=== PATIENT | female | born 1990 | race African-American/Black ===

== ENCOUNTER 2017-05-19 18:53 | Inpatient (IN) | payer MEDICAID ==
[~2017-05-19] VITALS: Ht 149.9 cm; Wt 47.0 kg
[~2017-05-19 18:53] MED LIST: BACL10TA PO; BIS10RS PR; DOCU-137 PO; FAMO-12 PO; FOLI1TAB51 PO; GABA-497 PO; HYD1TP TOP; MECL12.554 PO; ONDA4TAB5 PO; SERT-274 PO; SIMELIQ PO; TRAZ50TA2 PO; [UNRECOGNIZED DRUG - CODE] PO
[2017-05-20] VITALS (7 sets, daily range): BP systolic 88–122; BP diastolic 50–84
[2017-05-20 00:23] LABS: Basophils # (auto) 0 uL; Basophils % (auto) 0.3 % (0.0-2.0); DEFINITIVE SEE PRINTOUT; Eosinophils # (auto) 0.1 uL; Eosinophils % (auto) 0.5 % (0.0-7.0); Hematocrit 20.9 % (36.0-46.0); Lymphocytes # (auto) 2.9 uL; Lymphocytes % (auto) 22.8 % (10.0-50.0); Mean Corpuscular Hemoglobin 21.2 pg (28.0-32.0); Mean Corpuscular Hgb Conc. 32.5 g/dL (32.0-36.0); Mean Corpuscular Volume 65.4 fL (80.0-100.0); Mean Platelet Volume 7.1 fL (7.4-10.4); Monocytes % (auto) 7.6 % (0.0-12.0); Neutrophils # (auto) 8.6 uL; Neutrophils % (auto) 68.8 % (37.0-80.0); Red Cell Distribution Width 19.7 % (11.6-16.0); White Blood Cell 12.6 10^3/uL (4.4-10.8)
[2017-05-20 00:30] LABS: Hemoglobin 6.8 g/dL (12.2-16.2)
[2017-05-20] MEDS ORDERED: SODIUM CHLORIDE 0.9% 1,000 ML IV ONE (00:30)
[2017-05-20] MEDS ORDERED: ONDANSETRON HCL 4 MG/2 ML VIAL IV ONE (00:30)
[2017-05-20] MEDS ORDERED: HYDROmorphone HCL 2 MG/ML VL IV ONE (00:30)
[2017-05-20 00:31] LABS: Platelet Count (auto) 813 10^3/uL (140-450)
[2017-05-20 00:41] LABS: BUN/Creatinine Ratio 43.5; Calcium 8.3 mg/dL (8.5-10.1); Potassium 3.4 mmol/L (3.5-5.1)
[2017-05-20 00:43] LABS: Bilirubin, Total 0.2 mg/dL (0.2-1.0); Total Protein 9.6 g/dL (6.4-8.2)
[2017-05-20] MEDS ORDERED: SODIUM CHLORIDE 0.9% 2,000 ML IV ONE (01:00)
[2017-05-20] MEDS ORDERED: cefTRIAXone 1GM/50ML D5W 50 ML IV ONE (02:00)
[2017-05-20] MEDS ORDERED: VANCOMYCIN 1GM/250ML D5W 250 ML IV ONE (02:00)
[2017-05-20] MEDS ORDERED: NITROGLYCERIN 0.4 MG SL TAB SL PRN (02:30)
[2017-05-20] MEDS ORDERED: ACETAMINOPHEN 325 MG TAB PO PRN (02:30)
[2017-05-20] MEDS ORDERED: AMPICILLIN SOD 2GM INJ 2 GM in SODIUM CHL 0.9% 100 ML IV SCH (02:30)
[2017-05-20] MEDS ORDERED: PANTOPRAZOLE SODIUM 40 MG/10 ML VIAL IV ONE (02:30)
[2017-05-20] MEDS ORDERED: MORPHINE SULF INJ 2 MG/ML SYRINGE 1ML IV PRN (02:30)
[2017-05-20] MEDS: MORPHINE SULF INJ 2 MG/ML SYRINGE 1ML IV PRN ×3 (03:42→12:06)
[2017-05-20] MEDS: ONDANSETRON HCL 4 MG/2 ML VIAL IV PRN ×4 (03:42→21:38)
[2017-05-20] MEDS: SODIUM CHLORIDE 0.9% 1,000 ML IV SCH ×2 (06:27→13:33)
[2017-05-20] MEDS: CEFEPIME HYDROCHLORIDE 2 GM in D5W 5% 50 ML IV SCH ×2 (08:00→10:14)
[2017-05-20 08:51] LABS: Hematocrit 30.5 % (36.0-46.0); Hemoglobin 10.2 g/dL (12.2-16.2)
[2017-05-20 09:24] LABS: Urine Bilirubin Negative (Negative); Urine Blood 1+ /uL (Negative); Urine Color Yellow (Yellow); Urine Glucose Normal (Normal); Urine Ketone Negative (Negative); Urine Mucus FEW (None Seen); Urine Nitrite POSITIVE (Negative); Urine RBC 11 /hpf (0 - 4); Urine Squamous Epithelial Cell FEW /hpf (<5); Urine Urobilinogen Normal (Negative)
[2017-05-20] MEDS: DOCUSATE SOD 100 MG CAP PO SCH ×2 (09:33→22:00)
[2017-05-20] MEDS: SERTRALINE HCL 50 MG TAB PO SCH (09:33)
[2017-05-20] MEDS: PANTOPRAZOLE SODIUM 40 MG/10 ML VIAL IV SCH (10:10)
[2017-05-20] MEDS: HYDROmorphone HCL 2 MG/ML VL IV PRN ×3 (13:13→21:38)
[2017-05-20] MEDS ORDERED: CEFEPIME HYDROCHLORIDE 2 GM in D5W 5% 50 ML IV SCH (16:00)
[2017-05-20] MEDS: OXYCODONE W/ ACETAMINOPHEN 5/325MG TABLET PO PRN (19:52)
[2017-05-20] MEDS: CEFTAROLINE 600 MG in SODIUM CHL 0.9% 250 ML IV SCH (21:39)
[2017-05-20] MEDS ORDERED: PROMETHAZINE HCL 25 MG/ML 1ML ONE (22:21)
[2017-05-20] MEDS ORDERED: PROMETHAZINE HCL 25 MG/ML 1ML IV ONE (22:30)
[2017-05-21] MEDS: SODIUM CHLORIDE 0.9% 1,000 ML IV SCH ×3 (00:43→21:49)
[2017-05-21] MEDS: HYDROmorphone HCL 2 MG/ML VL IV PRN ×5 (02:27→19:15)
[2017-05-21] MEDS: ONDANSETRON HCL 4 MG/2 ML VIAL IV PRN ×2 (02:27→10:30)
[2017-05-21] MEDS: OXYCODONE W/ ACETAMINOPHEN 5/325MG TABLET PO PRN ×3 (03:48→14:52)
[2017-05-21 04:13] LABS: Basophils # (auto) 0 uL; Basophils % (auto) 0.5 % (0.0-2.0); CONDITION Y; DEFINITIVE SEE PRINTOUT; Eosinophils # (auto) 0.3 uL; Eosinophils % (auto) 4.1 % (0.0-7.0); Hematocrit 28.6 % (36.0-46.0); Hemoglobin 9.4 g/dL (12.2-16.2); Lymphocytes # (auto) 1.5 uL; Lymphocytes % (auto) 19.2 % (10.0-50.0); Mean Corpuscular Hemoglobin 24.6 pg (28.0-32.0); Mean Corpuscular Hgb Conc. 33.1 g/dL (32.0-36.0); Mean Corpuscular Volume 74.5 fL (80.0-100.0); Monocytes # (auto) 0.5 uL; Monocytes % (auto) 6.7 % (0.0-12.0); Neutrophils # (auto) 5.5 uL; Neutrophils % (auto) 69.5 % (37.0-80.0); Platelet Count (auto) 640 10^3/uL (140-450); SUSPECT SEE PRINTOUT; White Blood Cell 7.9 10^3/uL (4.4-10.8)
[2017-05-21 04:41] LABS: INR 1.05 (0.9-1.15); Prothrombin Time 11.4 sec (9.37-12.3)
[2017-05-21 04:42] LABS: Red Cell Distribution Width 27.7 % (11.6-16.0)
[2017-05-21 04:49] LABS: Albumin 1.5 g/dL (3.4-5.0); BUN/Creatinine Ratio 28.6; Bilirubin, Total 0.2 mg/dL (0.2-1.0); Calcium 7.6 mg/dL (8.5-10.1); Magnesium 1.7 mg/dL (1.6-2.6); Potassium 3.9 mmol/L (3.5-5.1); Total Protein 6.2 g/dL (6.4-8.2)
[2017-05-21 05:50] LABS: Hypersegmented Neutrophils Present; Platelet Estimate Increased
[2017-05-21 05:51] LABS: Anisocytosis Marked; Hypochromia Slight
[2017-05-21] MEDS: SERTRALINE HCL 50 MG TAB PO SCH (10:00)
[2017-05-21] MEDS: DOCUSATE SOD 100 MG CAP PO SCH ×2 (10:57→21:49)
[2017-05-21] MEDS: CEFTAROLINE 600 MG in SODIUM CHL 0.9% 250 ML IV SCH ×2 (10:57→21:49)
[2017-05-21] MEDS: PANTOPRAZOLE SODIUM 40 MG/10 ML VIAL IV SCH (10:57)
[2017-05-21] MEDS ORDERED: OXYCODONE W/ ACETAMINOPHEN 5/325MG TABLET ONE (14:51)
[2017-05-21 19:00] VITALS: BP 109/65
[2017-05-21 19:10] VITALS: BP 118/83
[2017-05-22] VITALS: BP 109/58
[2017-05-22] MEDS: HYDROmorphone HCL 2 MG/ML VL IV PRN ×5 (02:26→21:02)
[2017-05-22] MEDS: ONDANSETRON HCL 4 MG/2 ML VIAL IV PRN ×4 (02:26→21:02)
[2017-05-22 04:00] VITALS: BP 112/76
[2017-05-22 08:00] VITALS: BP 137/68
[2017-05-22] MEDS: OXYCODONE W/ ACETAMINOPHEN 5/325MG TABLET PO PRN (08:44)
[2017-05-22] MEDS: DOCUSATE SOD 100 MG CAP PO SCH ×3 (09:50→21:00)
[2017-05-22] MEDS: SERTRALINE HCL 50 MG TAB PO SCH ×2 (09:50→09:57)
[2017-05-22] MEDS: PANTOPRAZOLE SODIUM 40 MG/10 ML VIAL IV SCH (09:50)
[2017-05-22] MEDS: CEFTAROLINE 600 MG in SODIUM CHL 0.9% 250 ML IV SCH ×2 (09:51→21:00)
[2017-05-22] MEDS: SODIUM CHLORIDE 0.9% 1,000 ML IV SCH ×2 (09:52→20:58)
[2017-05-22 10:20] LABS: Basophils # (auto) 0 uL; Basophils % (auto) 0.3 % (0.0-2.0); CONDITION Y; DEFINITIVE SEE PRINTOUT; Eosinophils # (auto) 0.2 uL; Eosinophils % (auto) 1.9 % (0.0-7.0); Hematocrit 32.8 % (36.0-46.0); Lymphocytes # (auto) 2.3 uL; Mean Corpuscular Hemoglobin 24.5 pg (28.0-32.0); Mean Corpuscular Hgb Conc. 33.7 g/dL (32.0-36.0); Mean Corpuscular Volume 72.8 fL (80.0-100.0); Mean Platelet Volume 7.2 fL (7.4-10.4); Monocytes # (auto) 0.5 uL; Monocytes % (auto) 5.4 % (0.0-12.0); Neutrophils # (auto) 6.8 uL; Neutrophils % (auto) 69.4 % (37.0-80.0); Platelet Count (auto) 744 10^3/uL (140-450); SUSPECT SEE PRINTOUT; White Blood Cell 9.8 10^3/uL (4.4-10.8)
[2017-05-22 10:24] LABS: Red Cell Distribution Width 28.5 % (11.6-16.0)
[2017-05-22 10:33] LABS: INR 1.21 (0.9-1.15)
[2017-05-22 10:35] LABS: Prothrombin Time 13.2 sec (9.37-12.3)
[2017-05-22 10:40] LABS: Albumin 1.5 g/dL (3.4-5.0); BUN/Creatinine Ratio 22.2; Bilirubin, Total 0.2 mg/dL (0.2-1.0); Calcium 7.9 mg/dL (8.5-10.1); Magnesium 1.8 mg/dL (1.6-2.6); Potassium 3.9 mmol/L (3.5-5.1); Total Protein 7.3 g/dL (6.4-8.2)
[2017-05-22 10:44] LABS: Platelet Estimate Markedly Increased
[2017-05-22 10:46] LABS: Anisocytosis Moderate; Hypochromia Slight; Tear Drop Cells FEW
[2017-05-22] MEDS ORDERED: SODIUM CHLORIDE 0.9% 500 ML IV ONE (11:45)
[2017-05-22 12:00] VITALS: BP 142/91
[2017-05-22 15:53] VITALS: BP 110/68
[2017-05-22 20:00] VITALS: BP 103/53
[2017-05-23] VITALS (7 sets, daily range): BP systolic 92–119; BP diastolic 46–78
[2017-05-23] MEDS: traZODone HCL 50 MG TAB PO PRN (00:20)
[2017-05-23] MEDS: HYDROmorphone HCL 2 MG/ML VL IV PRN ×5 (02:51→22:01)
[2017-05-23 05:35] LABS: Basophils # (auto) 0 uL; Basophils % (auto) 0.4 % (0.0-2.0); CONDITION Y; DEFINITIVE SEE PRINTOUT; Eosinophils # (auto) 0.2 uL; Hematocrit 29.7 % (36.0-46.0); Lymphocytes # (auto) 2.3 uL; Lymphocytes % (auto) 31.1 % (10.0-50.0); Mean Corpuscular Hemoglobin 24.7 pg (28.0-32.0); Mean Corpuscular Hgb Conc. 33.7 g/dL (32.0-36.0); Mean Corpuscular Volume 73.3 fL (80.0-100.0); Mean Platelet Volume 7.3 fL (7.4-10.4); Monocytes # (auto) 0.5 uL; Monocytes % (auto) 6.9 % (0.0-12.0); Neutrophils # (auto) 4.4 uL; Neutrophils % (auto) 58.6 % (37.0-80.0); Platelet Count (auto) 702 10^3/uL (140-450); SUSPECT SEE PRINTOUT; White Blood Cell 7.5 10^3/uL (4.4-10.8)
[2017-05-23 05:44] LABS: Red Cell Distribution Width 29.3 % (11.6-16.0)
[2017-05-23 05:46] LABS: INR 1.11 (0.9-1.15); Prothrombin Time 12.1 sec (9.37-12.3)
[2017-05-23] MEDS: SODIUM CHLORIDE 0.9% 1,000 ML IV SCH ×2 (05:54→22:00)
[2017-05-23 05:57] LABS: Albumin 1.3 g/dL (3.4-5.0); Anion Gap 9 (5-15); Blood Urea Nitrogen 5 mg/dL (7-18); Calcium 7.3 mg/dL (8.5-10.1); Carbon Dioxide 22 mmol/L (21-32); Chloride 108 mmol/L (98-107); Glucose 61 mg/dL (74-106); Magnesium 1.8 mg/dL (1.6-2.6); Potassium 3.7 mmol/L (3.5-5.1); Sodium 139 mmol/L (136-145)
[2017-05-23 05:58] LABS: BUN/Creatinine Ratio 33.3; GFR African American 776 mL/min; GFR Non-African American 641 mL/min
[2017-05-23 06:01] LABS: Alkaline Phosphatase 82 U/L (45-117); Aspartate Aminotransferase 8 U/L (15-37); Bilirubin, Total 0.2 mg/dL (0.2-1.0); Total Protein 6.1 g/dL (6.4-8.2)
[2017-05-23 08:16] LABS: Microcytosis Moderate; Platelet Estimate Increased
[2017-05-23 08:17] LABS: Anisocytosis Moderate; Hypochromia Moderate; Tear Drop Cells FEW
[2017-05-23] MEDS: CEFTAROLINE 600 MG in SODIUM CHL 0.9% 250 ML IV SCH ×2 (10:00→22:00)
[2017-05-23] MEDS: PANTOPRAZOLE 40 MG TAB PO SCH (10:13)
[2017-05-23] MEDS: DOCUSATE SOD 100 MG CAP PO SCH ×3 (10:13→22:01)
[2017-05-23] MEDS: SERTRALINE HCL 50 MG TAB PO SCH (10:13)
[2017-05-23] MEDS: ONDANSETRON HCL 4 MG/2 ML VIAL IV PRN ×3 (13:16→18:54)
[2017-05-23] MEDS ORDERED: BISACODYL 10 MG RECT SUPP PR ONE (15:00)
[2017-05-23] MEDS ORDERED: VANCOMYCIN PER PHARMACY 0 MG IV SCH (15:00)
[2017-05-23] MEDS: ENOXAPARIN SOD 40 MG/0.4 ML SYRINGE SC SCH (15:30)
[2017-05-23] MEDS: PROMETHAZINE HCL 25 MG/ML 1ML IV PRN ×2 (16:00→22:01)
[2017-05-23] MEDS: BOOST 8 ounces PO SCH (18:22)
[2017-05-24] MEDS: HYDROmorphone HCL 2 MG/ML VL IV PRN ×5 (04:03→23:58)
[2017-05-24] MEDS: PROMETHAZINE HCL 25 MG/ML 1ML IV PRN ×2 (04:04→13:22)
[2017-05-24 05:46] VITALS: BP 122/68
[2017-05-24] MEDS: SODIUM CHLORIDE 0.9% 1,000 ML IV SCH ×2 (06:20→17:50)
[2017-05-24 06:24] LABS: Anion Gap 9 (5-15); Blood Urea Nitrogen 6 mg/dL (7-18); Calcium 7.1 mg/dL (8.5-10.1); Carbon Dioxide 20 mmol/L (21-32); Chloride 110 mmol/L (98-107); Glucose 68 mg/dL (74-106); Potassium 3.7 mmol/L (3.5-5.1); Sodium 139 mmol/L (136-145)
[2017-05-24 07:14] LABS: GFR African American 1239 mL/min; GFR Non-African American 1024 mL/min
[2017-05-24 07:30] LABS: Basophils # (auto) 0 uL; Basophils % (auto) 0.5 % (0.0-2.0); CONDITION Y; DEFINITIVE SEE PRINTOUT; Eosinophils # (auto) 0.2 uL; Eosinophils % (auto) 2.3 % (0.0-7.0); Hematocrit 28.5 % (36.0-46.0); Hemoglobin 9.7 g/dL (12.2-16.2); Lymphocytes # (auto) 2.2 uL; Lymphocytes % (auto) 26.2 % (10.0-50.0); Mean Corpuscular Hemoglobin 24.8 pg (28.0-32.0); Mean Corpuscular Hgb Conc. 34.1 g/dL (32.0-36.0); Mean Corpuscular Volume 72.7 fL (80.0-100.0); Mean Platelet Volume 7.5 fL (7.4-10.4); Monocytes # (auto) 0.6 uL; Monocytes % (auto) 6.6 % (0.0-12.0); Neutrophils # (auto) 5.4 uL; Neutrophils % (auto) 64.4 % (37.0-80.0); Platelet Count (auto) 643 10^3/uL (140-450); SUSPECT SEE PRINTOUT; White Blood Cell 8.4 10^3/uL (4.4-10.8)
[2017-05-24 07:36] LABS: Red Cell Distribution Width 29.3 % (11.6-16.0)
[2017-05-24 08:23] LABS: Anisocytosis Moderate; Hypochromia Moderate; Microcytosis Moderate; Platelet Estimate Increased
[2017-05-24 08:24] LABS: Ovalocytes FEW; Tear Drop Cells FEW
[2017-05-24] MEDS: ENOXAPARIN SOD 40 MG/0.4 ML SYRINGE SC SCH (08:24)
[2017-05-24] MEDS: PANTOPRAZOLE 40 MG TAB PO SCH (08:25)
[2017-05-24] MEDS: BOOST 8 ounces PO SCH ×3 (08:25→18:00)
[2017-05-24] MEDS: ONDANSETRON HCL 4 MG/2 ML VIAL IV PRN ×3 (08:25→20:32)
[2017-05-24] MEDS: SERTRALINE HCL 50 MG TAB PO SCH (08:26)
[2017-05-24] MEDS: DOCUSATE SOD 100 MG CAP PO SCH ×2 (08:26→22:42)
[2017-05-24 08:36] VITALS: BP 126/74
[2017-05-24] MEDS: CEFTAROLINE 600 MG in SODIUM CHL 0.9% 250 ML IV SCH ×2 (09:24→22:42)
[2017-05-24 13:00] VITALS: BP 120/75
[2017-05-24 17:23] VITALS: BP 125/76
[2017-05-24 22:22] VITALS: BP 100/57
[2017-05-24] MEDS: traZODone HCL 50 MG TAB PO PRN (22:45)
[2017-05-25] MEDS: ONDANSETRON HCL 4 MG/2 ML VIAL IV PRN ×3 (00:37→13:22)
[2017-05-25] MEDS: PROMETHAZINE HCL 25 MG/ML 1ML IV PRN ×2 (03:25→10:15)
[2017-05-25] MEDS: HYDROmorphone HCL 2 MG/ML VL IV PRN ×4 (03:25→13:22)
[2017-05-25] MEDS: SODIUM CHLORIDE 0.9% 1,000 ML IV SCH ×2 (04:41→15:40)
[2017-05-25 05:20] VITALS: BP 105/54
[2017-05-25] MEDS: BOOST 8 ounces PO SCH ×2 (08:37→12:00)
[2017-05-25 09:00] VITALS: BP 122/65
[2017-05-25] MEDS: DOCUSATE SOD 100 MG CAP PO SCH (10:00)
[2017-05-25] MEDS: SERTRALINE HCL 50 MG TAB PO SCH (10:00)
[2017-05-25] MEDS: PANTOPRAZOLE 40 MG TAB PO SCH (10:12)
[2017-05-25] MEDS: CEFTAROLINE 600 MG in SODIUM CHL 0.9% 250 ML IV SCH (10:14)
[2017-05-25] MEDS: ENOXAPARIN SOD 40 MG/0.4 ML SYRINGE SC SCH (10:15)
[2017-05-25] MEDS ORDERED: CEFT600I IV (11:31)
[2017-05-25 12:11] VITALS: BP 103/57
== END 2017-05-25 17:20 | disposition home health service, planned readmission (86) | DRG 720 ==
LOC: EDBD 18:53 → ER 19:03 → TELE 19:04 → DOU IN ICU 05-21 19:01 → TELE-WESTW 05-23 17:49 → WEST WING 05-23 17:49
PROVIDERS: ADMIT Internal Medicine; ATTEND Nurse Practitioner Acute Care
PROC: 30233N1 Transfusion of Nonautologous Red Blood Cells into Peripheral Vein, Percutaneous Approach (ICD-10-PCS; principal; 2017-05-19)
DX: A41.9 Sepsis, unspecified organism (principal); G82.50 Quadriplegia, unspecified; E43 Unspecified severe protein-calorie malnutrition; L89.94 Pressure ulcer of unspecified site, stage 4; Z93.0 Tracheostomy status; L89.209 Pressure ulcer of unspecified hip, unspecified stage; F03.90 Unspecified dementia, unspecified severity, without behavioral disturbance, psychotic disturbance, mood disturbance, and anxiety; D68.59 Other primary thrombophilia; K92.2 Gastrointestinal hemorrhage, unspecified; N39.0 Urinary tract infection, site not specified; Z74.01 Bed confinement status; D64.9 Anemia, unspecified; E86.0 Dehydration; F12.90 Cannabis use, unspecified, uncomplicated; I10 Essential (primary) hypertension; M41.9 Scoliosis, unspecified; Z80.1 Family history of malignant neoplasm of trachea, bronchus and lung; Z81.8 Family history of other mental and behavioral disorders; Z82.3 Family history of stroke; Z82.49 Family history of ischemic heart disease and other diseases of the circulatory system; Z83.3 Family history of diabetes mellitus; Z87.442 Personal history of urinary calculi; F32.9 Major depressive disorder, single episode, unspecified; F41.9 Anxiety disorder, unspecified; Z88.1 Allergy status to other antibiotic agents; Z88.5 Allergy status to narcotic agent; Z71.89 Other specified counseling; Z80.9 Family history of malignant neoplasm, unspecified; B95.62 Methicillin resistant Staphylococcus aureus infection as the cause of diseases classified elsewhere; L89.95 Pressure ulcer of unspecified site, unstageable
CPT/HCPCS: 36415; 71010; 74176; 80048; 80053; 80061; 81001; 82728; 83036; 83540; 83550; 83605; 83735; 85014; 85018; 85025; 85610; 86850; 86900; 86901; 86920; 87040; 87077; 87081; 87086; 87186; 87205; 94761; 96361; 96374; 96375; C9113; J0696; J0712; J1642; J2405; J7060

== ENCOUNTER 2017-11-05 08:47 | Inpatient (IN) | payer MEDICAID ==
[~2017-11-05] VITALS: Ht 165.1 cm; Wt 45.4 kg
[~2017-11-05 08:47] MED LIST changes: +CEFT600I IV; -GABA-497 PO; +GABA300C10 PO; +SACC250C PO
[2017-11-05] MEDS ORDERED: SODIUM CHLORIDE 0.9% 1,000 ML IVB ONE (08:59)
[2017-11-05] MEDS ORDERED: KETOROLAC TROMETH 30 MG/ML 1ML VIAL IV ONE (09:00)
[2017-11-05] MEDS ORDERED: ONDANSETRON HCL 4 MG/2 ML VIAL IV ONE ×2 (09:00→10:30)
[2017-11-05 09:57] LABS: Basophils # (auto) 0.1 uL; Eosinophils # (auto) 0 uL; Hemoglobin 8.1 g/dL (12.2-16.2); Lymphocytes # (auto) 2.1 uL; Lymphocytes % (auto) 16.5 % (10.0-50.0); Monocytes # (auto) 0.7 uL; Nucleated Red Blood Cells % 0.1 %
[2017-11-05 09:59] LABS: Basophils % (auto) 0.8 % (0.0-2.0); Eosinophils % (auto) 0.1 % (0.0-7.0); Hematocrit 24.1 % (36.0-46.0); Mean Corpuscular Hemoglobin 21.3 pg (28.0-32.0); Mean Corpuscular Hgb Conc. 33.5 g/dL (32.0-36.0); Mean Corpuscular Volume 63.5 fL (80.0-100.0); Monocytes % (auto) 5.4 % (0.0-12.0); Neutrophils # (auto) 9.7 uL; Neutrophils % (auto) 77.2 % (37.0-80.0); Platelet Count (auto) 490 10^3/uL (140-450); White Blood Cell 12.6 10^3/uL (4.4-10.8)
[2017-11-05 10:02] LABS: Albumin 1.7 g/dL (3.4-5.0); BUN/Creatinine Ratio 26.1; Calcium 6.7 mg/dL (8.5-10.1)
[2017-11-05 10:05] LABS: Bilirubin, Total 0.3 mg/dL (0.2-1.0)
[2017-11-05 10:15] LABS: Potassium 2.4 mmol/L (3.5-5.1)
[2017-11-05 10:25] LABS: Red Cell Distribution Width 24.9 % (11.8-14.3)
[2017-11-05] MEDS ORDERED: POTASSIUM CHL 10% (20 MEQ/15ML) 15ml ORAL SOLN PO ONE (10:30)
[2017-11-05] MEDS ORDERED: MORPHINE SULFATE 4 MG/ML SYR/VIAL IV ONE (10:30)
[2017-11-05] MEDS ORDERED: ALBUTEROL SULF 2.5 MG/0.5ML(0.5%) NEB SOLN HHN ONE (10:30)
[2017-11-05] MEDS ORDERED: IPRATROPIUM BROM 0.5 MG/2.5ML INH SOL HHN ONE (10:30)
[2017-11-05] MEDS ORDERED: SODIUM CHLORIDE 0.9% 1,350 ML IV ONE (11:00)
[2017-11-05] MEDS ORDERED: LEVOFLOXACIN 500MG 100 ML IV ONE (11:00)
[2017-11-05] MEDS ORDERED: CEFTRIAXONE SODIUM 2 GM in D5W 5% 50 ML IV ONE (12:00)
[2017-11-05] MEDS ORDERED: MORPHINE SULF INJ 2 MG/ML SYRINGE 1ML IV PRN (12:00)
[2017-11-05] MEDS ORDERED: BACLOFEN 10 MG TAB PO PRN (12:00)
[2017-11-05] MEDS ORDERED: cefTRIAXone 1GM/10ml IVPUSH 0 ML IV ONE (12:02)
[2017-11-05] MEDS: SODIUM CHLORIDE 0.9% 1,000 ML IV SCH (12:28)
[2017-11-05] MEDS: ONDANSETRON HCL 4 MG/2 ML VIAL IV PRN ×2 (13:06→17:15)
[2017-11-05] MEDS: GABAPENTIN 300 MG CAP PO SCH ×2 (14:15→22:15)
[2017-11-05] MEDS: MORPHINE SULFATE 4 MG/ML SYR/VIAL IV PRN ×2 (14:51→19:00)
[2017-11-05] MEDS: KETOROLAC TROMETH 30 MG/ML 1ML VIAL IV PRN (17:15)
[2017-11-05] MEDS: IPRATROPIUM BROM 0.5 MG/2.5ML INH SOL NEB SCH (19:05)
[2017-11-05] MEDS: ALBUTEROL SULF 2.5 MG/0.5ML(0.5%) NEB SOLN NEB SCH (19:05)
[2017-11-05 20:30] VITALS: BP 98/67
[2017-11-05] MEDS: DOCUSATE SOD 100 MG CAP PO SCH (22:00)
[2017-11-05] MEDS: traZODone HCL 50 MG TAB PO SCH (22:15)
[2017-11-05 23:18] VITALS: BP 98/67
[2017-11-05 23:35] VITALS: BP 97/67
[2017-11-06] VITALS (12 sets, daily range): BP systolic 91–136; BP diastolic 63–92
[2017-11-06] MEDS: ALBUTEROL SULF 2.5 MG/0.5ML(0.5%) NEB SOLN NEB SCH ×4 (01:13→20:09)
[2017-11-06] MEDS: IPRATROPIUM BROM 0.5 MG/2.5ML INH SOL NEB SCH ×4 (01:13→20:09)
[2017-11-06] MEDS: SODIUM CHLORIDE 0.9% 1,000 ML IV SCH ×2 (01:16→14:38)
[2017-11-06] MEDS: MORPHINE SULFATE 4 MG/ML SYR/VIAL IV PRN ×4 (01:47→21:46)
[2017-11-06] MEDS: GABAPENTIN 300 MG CAP PO SCH ×3 (05:55→21:45)
[2017-11-06 06:04] LABS: Basophils # (auto) 0 uL; Basophils % (auto) 0.4 % (0.0-2.0); Eosinophils # (auto) 0.1 uL; Eosinophils % (auto) 0.8 % (0.0-7.0); Lymphocytes # (auto) 1.8 uL; Neutrophils # (auto) 4.3 uL
[2017-11-06 06:08] LABS: Hematocrit 19.7 % (36.0-46.0); Lymphocytes % (auto) 27.1 % (10.0-50.0); Mean Corpuscular Hemoglobin 21.6 pg (28.0-32.0); Mean Corpuscular Hgb Conc. 33.1 g/dL (32.0-36.0); Mean Corpuscular Volume 65.1 fL (80.0-100.0); Monocytes # (auto) 0.6 uL; Monocytes % (auto) 8.4 % (0.0-12.0); Neutrophils % (auto) 63.3 % (37.0-80.0); Platelet Count (auto) 358 10^3/uL (140-450); Red Blood Cells 3.03 10^6/uL (4.0-5.20); White Blood Cell 6.8 10^3/uL (4.4-10.8)
[2017-11-06 06:19] LABS: Red Cell Distribution Width 24.9 % (11.8-14.3)
[2017-11-06 06:20] LABS: Hemoglobin 6.5 g/dL (12.2-16.2)
[2017-11-06 06:27] LABS: Albumin 1.5 g/dL (3.4-5.0); Anion Gap 7 (5-15); Blood Urea Nitrogen 4 mg/dL (7-18); Calcium 6.4 mg/dL (8.5-10.1); Carbon Dioxide 26 mmol/L (21-32); Chloride 110 mmol/L (98-107); Glucose 84 mg/dL (74-106); Potassium 3.2 mmol/L (3.5-5.1); Sodium 143 mmol/L (136-145)
[2017-11-06 06:29] LABS: Alanine Aminotransferase < 6 U/L (13-56); Aspartate Aminotransferase 8 U/L (15-37); BUN/Creatinine Ratio 11.8; GFR African American 299 mL/min; GFR Non-African American 247 mL/min
[2017-11-06 06:32] LABS: Alkaline Phosphatase 101 U/L (45-117); Bilirubin, Total 0.1 mg/dL (0.2-1.0); Total Protein 6.8 g/dL (6.4-8.2)
[2017-11-06] MEDS: cefTRIAXone 1GM/10ml IVPUSH 10 ML IV SCH (08:02)
[2017-11-06] MEDS ORDERED: PANTOPRAZOLE 40 MG/10 ML VIAL IV SCH (10:00)
[2017-11-06] MEDS ORDERED: ENOXAPARIN SOD 30 MG/0.3 ML SYRINGE SC SCH (10:00)
[2017-11-06] MEDS ORDERED: LEVOFLOXACIN 500MG 100 ML IV SCH (10:00)
[2017-11-06] MEDS ORDERED: ENOXAPARIN SOD 40 MG/0.4 ML SYRINGE SC SCH (10:00)
[2017-11-06] MEDS: ONDANSETRON HCL 4 MG/2 ML VIAL IV PRN ×3 (10:08→21:43)
[2017-11-06] MEDS: KETOROLAC TROMETH 30 MG/ML 1ML VIAL IV PRN (10:09)
[2017-11-06] MEDS: SERTRALINE HCL 50 MG TAB PO SCH (10:10)
[2017-11-06] MEDS: DOCUSATE SOD 100 MG CAP PO SCH ×2 (10:10→21:45)
[2017-11-06 10:33] LABS: Urine Bacteria FEW /hpf (None Seen); Urine Blood TRACE /uL (Negative); Urine Mucus FEW (None Seen); Urine WBC 22 /hpf (0 - 5)
[2017-11-06] MEDS ORDERED: FUROSEMIDE 20 MG/2 ML VIAL IV ONE (11:15)
[2017-11-06 12:29] LABS: % Iron Saturation 10.8 % (15-50)
[2017-11-06] MEDS ORDERED: HYDROmorphone HCL 2 MG TAB PO PRN (12:30)
[2017-11-06 12:38] LABS: Ferritin 184.3 ng/mL (10-322)
[2017-11-06 12:39] LABS: Folate (Folic Acid) 7.44 ng/mL (5.38-24)
[2017-11-06] MEDS: BACLOFEN 10 MG TAB PO SCH ×3 (14:00→21:44)
[2017-11-06] MEDS: CALCIUM W/VIT D (600MG/400IU) TAB PO SCH (18:58)
[2017-11-06] MEDS: LACTULOSE 20Gm/30ML SOLN PO SCH ×2 (21:44→22:00)
[2017-11-06] MEDS: traZODone HCL 50 MG TAB PO SCH (21:44)
[2017-11-06] MEDS: PANTOPRAZOLE 40 MG/10 ML VIAL IV SCH (21:44)
[2017-11-07] MEDS: MORPHINE SULFATE 4 MG/ML SYR/VIAL IV PRN ×3 (04:30→12:27)
[2017-11-07 04:54] VITALS: BP 119/68
[2017-11-07] MEDS: ONDANSETRON HCL 4 MG/2 ML VIAL IV PRN ×2 (05:00→12:27)
[2017-11-07 06:13] LABS: Basophils # (auto) 0 uL; Eosinophils # (auto) 0.1 uL; Hemoglobin 9.7 g/dL (12.2-16.2); Monocytes # (auto) 0.6 uL; Neutrophils % (auto) 58.6 % (37.0-80.0); Nucleated Red Blood Cells % 0.1 %; White Blood Cell 6.6 10^3/uL (4.4-10.8)
[2017-11-07 06:16] LABS: Basophils % (auto) 0.5 % (0.0-2.0); Eosinophils % (auto) 1.3 % (0.0-7.0); Hematocrit 28.5 % (36.0-46.0); Lymphocytes % (auto) 30.7 % (10.0-50.0); Mean Corpuscular Hemoglobin 23.4 pg (28.0-32.0); Mean Corpuscular Volume 68.7 fL (80.0-100.0); Monocytes % (auto) 8.9 % (0.0-12.0); Neutrophils # (auto) 3.8 uL; Platelet Count (auto) 378 10^3/uL (140-450); Red Blood Cells 4.15 10^6/uL (4.0-5.20)
[2017-11-07 06:29] LABS: Red Cell Distribution Width 25.9 % (11.8-14.3)
[2017-11-07] MEDS: GABAPENTIN 300 MG CAP PO SCH ×2 (06:30→14:54)
[2017-11-07] MEDS: BACLOFEN 10 MG TAB PO SCH ×2 (06:31→14:54)
[2017-11-07] MEDS: SODIUM CHLORIDE 0.9% 1,000 ML IV SCH ×2 (06:32→17:16)
[2017-11-07 06:34] LABS: BUN/Creatinine Ratio 11.8; Calcium 6.9 mg/dL (8.5-10.1); INR 1.14 (0.9-1.15); Partial Thromboplastin Time 30.3 sec (22.64-33.71); Prothrombin Time 12.4 sec (9.37-12.3)
[2017-11-07] MEDS: ALBUTEROL SULF 2.5 MG/0.5ML(0.5%) NEB SOLN NEB SCH ×3 (06:45→11:28)
[2017-11-07] MEDS: IPRATROPIUM BROM 0.5 MG/2.5ML INH SOL NEB SCH ×3 (06:45→11:28)
[2017-11-07] MEDS: CALCIUM W/VIT D (600MG/400IU) TAB PO SCH (08:33)
[2017-11-07 09:00] VITALS: BP 149/71
[2017-11-07] MEDS: PANTOPRAZOLE 40 MG/10 ML VIAL IV SCH (09:36)
[2017-11-07] MEDS: DOCUSATE SOD 100 MG CAP PO SCH (09:36)
[2017-11-07] MEDS: SERTRALINE HCL 50 MG TAB PO SCH (09:36)
[2017-11-07] MEDS: cefTRIAXone 1GM/10ml IVPUSH 10 ML IV SCH (09:36)
[2017-11-07] MEDS: LACTULOSE 20Gm/30ML SOLN PO SCH (09:40)
[2017-11-07 13:00] VITALS: BP 116/75
[2017-11-07] MEDS ORDERED: CALC600T80 PO (13:35)
[2017-11-07] MEDS ORDERED: FAMO-12 PO (13:35)
[2017-11-07] MEDS ORDERED: PROM25TA5 PO (13:35)
[2017-11-07] MEDS ORDERED: GABA300C10 PO (13:35)
[2017-11-07] MEDS ORDERED: CEL100T PO (13:35)
[2017-11-07] MEDS ORDERED: PRE5T PO (13:35)
[2017-11-07 15:00] VITALS: BP 120/64
== END 2017-11-07 18:05 | disposition home or self-care (01) | DRG 347 ==
LOC: EDBD 08:47 → ER 08:47 → OVERFLOW 08:48 → EAST 19:27
PROVIDERS: ADMIT Family Medicine; ATTEND Hospitalist
PROC: 30233N1 Transfusion of Nonautologous Red Blood Cells into Peripheral Vein, Percutaneous Approach (ICD-10-PCS; principal; 2017-11-06)
DX: M62.830 Muscle spasm of back (principal); G82.50 Quadriplegia, unspecified; E43 Unspecified severe protein-calorie malnutrition; J18.1 Lobar pneumonia, unspecified organism; Z93.0 Tracheostomy status; M54.9 Dorsalgia, unspecified; M62.838 Other muscle spasm; E87.6 Hypokalemia; D62 Acute posthemorrhagic anemia; M85.80 Other specified disorders of bone density and structure, unspecified site; F32.9 Major depressive disorder, single episode, unspecified; F41.9 Anxiety disorder, unspecified; K59.00 Constipation, unspecified; R04.0 Epistaxis; Z88.5 Allergy status to narcotic agent; Z88.1 Allergy status to other antibiotic agents; Z80.1 Family history of malignant neoplasm of trachea, bronchus and lung; Z74.01 Bed confinement status; Z81.8 Family history of other mental and behavioral disorders; Z82.3 Family history of stroke; Z82.49 Family history of ischemic heart disease and other diseases of the circulatory system; Z87.01 Personal history of pneumonia (recurrent); Z83.3 Family history of diabetes mellitus; Z87.442 Personal history of urinary calculi; Z87.440 Personal history of urinary (tract) infections
CPT/HCPCS: 36415; 71010; 72070; 72100; 74176; 80048; 80053; 81001; 82270; 82607; 82728; 82746; 83540; 83550; 83605; 83690; 85025; 85610; 85730; 86850; 86900; 86901; 86920; 87040; 87081; 94640; 96361; 96365; 96367; 96375; 99291; C9113; J0696; J1642; J1885; J1956; J2405; J7060

== ENCOUNTER 2017-12-05 23:14 | Inpatient (IN) | payer MEDICAID ==
[~2017-12-05] VITALS: Ht 162.6 cm; Wt 43.0 kg
[~2017-12-05 23:14] MED LIST changes: +CALC600T80 PO; +CEL100T PO; +PRE5T PO; +PROM25TA5 PO
[2017-12-06] MEDS ORDERED: cefTRIAXone 1GM/10ml IVPUSH 10 ML IV ONE (03:00)
[2017-12-06] MEDS ORDERED: MORPHINE SULF INJ 2 MG/ML SYRINGE 1ML IV ONE (03:00)
[2017-12-06] MEDS ORDERED: SODIUM CHLORIDE 0.9% 1,000 ML IV ONE ×2 (03:00→06:15)
[2017-12-06] MEDS ORDERED: ONDANSETRON HCL 4 MG/2 ML VIAL IV ONE (03:00)
[2017-12-06 03:30] LABS: Basophils # (auto) 0 uL; Eosinophils # (auto) 0.1 uL; Lymphocytes # (auto) 2.2 uL; Mean Corpuscular Hemoglobin 23.2 pg (28.0-32.0); Monocytes # (auto) 0.6 uL; Neutrophils # (auto) 3.5 uL; White Blood Cell 6.4 10^3/uL (4.4-10.8)
[2017-12-06 03:32] LABS: Basophils % (auto) 0.2 % (0.0-2.0); Hemoglobin 9.2 g/dL (12.2-16.2); Lymphocytes % (auto) 34.3 % (10.0-50.0); Mean Corpuscular Hgb Conc. 32.8 g/dL (32.0-36.0); Mean Corpuscular Volume 70.7 fL (80.0-100.0); Monocytes % (auto) 8.9 % (0.0-12.0); Neutrophils % (auto) 54.6 % (37.0-80.0); Nucleated Red Blood Cells % 0.1 %; Platelet Count (auto) 447 10^3/uL (140-450); Red Blood Cells 3.97 10^6/uL (4.0-5.20)
[2017-12-06 03:34] LABS: Red Cell Distribution Width 22.7 % (11.8-14.3)
[2017-12-06 03:53] LABS: BUN/Creatinine Ratio 25.8; Potassium 3.7 mmol/L (3.5-5.1)
[2017-12-06 03:54] LABS: Albumin 2.6 g/dL (3.4-5.0); Bilirubin, Total 0.3 mg/dL (0.2-1.0); Calcium 8.5 mg/dL (8.5-10.1); Total Protein 9.9 g/dL (6.4-8.2)
[2017-12-06 05:51] LABS: Urine Bacteria FEW /hpf (None Seen); Urine Blood TRACE /uL (Negative); Urine Specific Gravity 1.003 (1.001-1.035); Urine WBC 3 /hpf (0 - 5)
[2017-12-06] MEDS: SODIUM CHLORIDE 0.9% 1,000 ML IV SCH ×2 (07:21→16:35)
[2017-12-06] MEDS ORDERED: NITROGLYCERIN 0.4 MG SL TAB SL PRN (07:30)
[2017-12-06] MEDS ORDERED: ACETAMINOPHEN 325 MG TAB PO PRN (07:30)
[2017-12-06] MEDS ORDERED: MORPHINE SULF INJ 2 MG/ML SYRINGE 1ML IV PRN (07:30)
[2017-12-06] MEDS ORDERED: MORPHINE SULFATE 10 MG/ML INJ 1ML SDV IV PRN (07:30)
[2017-12-06] MEDS ORDERED: CLINDAMYCIN 600MG IV 50 ML IV ONE (08:00)
[2017-12-06 08:45] VITALS: BP 99/61
[2017-12-06] MEDS: cefTRIAXone 1GM/10ml IVPUSH 10 ML IV SCH (09:06)
[2017-12-06] MEDS: FAMOTIDINE 20 MG TAB PO SCH ×2 (09:33→21:39)
[2017-12-06] MEDS: HYDROcodone-ACET 5/325MG TAB PO PRN ×2 (09:33→16:39)
[2017-12-06] MEDS: DOCUSATE SOD 100 MG CAP PO SCH ×3 (09:34→21:53)
[2017-12-06] MEDS: ENOXAPARIN SOD 40 MG/0.4 ML SYRINGE SC SCH (09:34)
[2017-12-06 13:00] VITALS: BP 96/52
[2017-12-06] MEDS: CLINDAMYCIN 600MG IV 50 ML IV SCH ×2 (13:09→21:39)
[2017-12-06] MEDS: GABAPENTIN 300 MG CAP PO SCH ×2 (13:10→21:39)
[2017-12-06] MEDS: HYDROmorphone HCL 2 MG TAB PO PRN ×2 (13:10→18:24)
[2017-12-06] MEDS ORDERED: HYDROmorphone HCL 2 MG TAB PO SCH (14:00)
[2017-12-06 17:47] VITALS: BP 99/66
[2017-12-06 20:00] VITALS: BP 102/79
[2017-12-06] MEDS: TEMAZEPAM 15 MG CAP PO PRN (21:40)
[2017-12-06 22:47] VITALS: BP 102/79
[2017-12-07] VITALS (7 sets, daily range): BP systolic 78–106; BP diastolic 50–69
[2017-12-07] MEDS: ONDANSETRON HCL 4 MG/2 ML VIAL IV PRN ×3 (00:18→23:30)
[2017-12-07] MEDS: HYDROmorphone HCL 2 MG TAB PO PRN ×4 (00:18→21:53)
[2017-12-07] MEDS: HYDROcodone-ACET 5/325MG TAB PO PRN ×2 (02:41→23:30)
[2017-12-07] MEDS: SODIUM CHLORIDE 0.9% 1,000 ML IV SCH ×2 (04:16→13:31)
[2017-12-07] MEDS: CLINDAMYCIN 600MG IV 50 ML IV SCH ×3 (05:21→21:53)
[2017-12-07] MEDS: GABAPENTIN 300 MG CAP PO SCH ×3 (05:22→21:53)
[2017-12-07 06:39] LABS: Basophils # (auto) 0 uL; Eosinophils # (auto) 0.2 uL; Lymphocytes # (auto) 2.1 uL; Neutrophils # (auto) 1.7 uL; Nucleated Red Blood Cells % 0.2 %; White Blood Cell 4.5 10^3/uL (4.4-10.8)
[2017-12-07 06:42] LABS: Basophils % (auto) 0.4 % (0.0-2.0); Eosinophils % (auto) 4.6 % (0.0-7.0); Hematocrit 23.5 % (36.0-46.0); Lymphocytes % (auto) 47.2 % (10.0-50.0); Mean Corpuscular Hemoglobin 23.9 pg (28.0-32.0); Mean Corpuscular Hgb Conc. 33.9 g/dL (32.0-36.0); Mean Corpuscular Volume 70.4 fL (80.0-100.0); Monocytes # (auto) 0.4 uL; Monocytes % (auto) 9.3 % (0.0-12.0); Neutrophils % (auto) 38.5 % (37.0-80.0); Platelet Count (auto) 397 10^3/uL (140-450); Red Blood Cells 3.34 10^6/uL (4.0-5.20)
[2017-12-07 06:55] LABS: Alanine Aminotransferase < 6 U/L (13-56); Albumin 2.2 g/dL (3.4-5.0); Alkaline Phosphatase 77 U/L (45-117); Anion Gap 6 (5-15); Aspartate Aminotransferase 8 U/L (15-37); BUN/Creatinine Ratio 27.8; Bilirubin, Total 0.2 mg/dL (0.2-1.0); Blood Urea Nitrogen 5 mg/dL (7-18); Calcium 8.3 mg/dL (8.5-10.1); Carbon Dioxide 24 mmol/L (21-32); Chloride 108 mmol/L (98-107); GFR African American 624 mL/min; GFR Non-African American 515 mL/min; Glucose 77 mg/dL (74-106); Potassium 3.8 mmol/L (3.5-5.1); Sodium 138 mmol/L (136-145); Total Protein 8.6 g/dL (6.4-8.2)
[2017-12-07 07:04] LABS: Red Cell Distribution Width 23.1 % (11.8-14.3)
[2017-12-07] MEDS: FAMOTIDINE 20 MG TAB PO SCH ×2 (09:09→21:54)
[2017-12-07] MEDS: DOCUSATE SOD 100 MG CAP PO SCH ×2 (09:09→21:54)
[2017-12-07] MEDS: cefTRIAXone 1GM/10ml IVPUSH 10 ML IV SCH (09:09)
[2017-12-07] MEDS: ENOXAPARIN SOD 40 MG/0.4 ML SYRINGE SC SCH (09:09)
[2017-12-07] MEDS: BOOST PLUS 8 ounce PO SCH ×2 (17:18→21:54)
[2017-12-07] MEDS: PRO-STAT 64 30ML PO SCH (17:18)
[2017-12-07] MEDS: ASCORBIC ACID 500 MG TAB PO SCH (21:54)
[2017-12-07] MEDS: TEMAZEPAM 15 MG CAP PO PRN (23:22)
[2017-12-08] MEDS: HYDROmorphone HCL 2 MG TAB PO PRN ×2 (01:59→09:50)
[2017-12-08] MEDS ORDERED: ALBUTEROL SULF 2.5 MG/0.5ML(0.5%) NEB SOLN NEB PRN (02:45)
[2017-12-08 05:33] VITALS: BP 97/52
[2017-12-08] MEDS: BOOST PLUS 8 ounce PO SCH ×2 (06:08→11:33)
[2017-12-08] MEDS: CLINDAMYCIN 600MG IV 50 ML IV SCH ×2 (06:08→13:33)
[2017-12-08] MEDS: GABAPENTIN 300 MG CAP PO SCH ×2 (06:08→13:33)
[2017-12-08 06:41] LABS: Basophils # (auto) 0 uL; Eosinophils # (auto) 0.2 uL; Hemoglobin 7.7 g/dL (12.2-16.2); Lymphocytes # (auto) 2.2 uL; Monocytes # (auto) 0.5 uL; Neutrophils # (auto) 2.1 uL; Nucleated Red Blood Cells % 0.1 %
[2017-12-08 06:44] LABS: Basophils % (auto) 0.6 % (0.0-2.0); Eosinophils % (auto) 3.4 % (0.0-7.0); Hematocrit 23.2 % (36.0-46.0); Lymphocytes % (auto) 43.5 % (10.0-50.0); Mean Corpuscular Hemoglobin 23.2 pg (28.0-32.0); Mean Corpuscular Hgb Conc. 33.3 g/dL (32.0-36.0); Mean Corpuscular Volume 69.8 fL (80.0-100.0); Monocytes % (auto) 9.8 % (0.0-12.0); Neutrophils % (auto) 42.7 % (37.0-80.0); Platelet Count (auto) 434 10^3/uL (140-450); Red Blood Cells 3.32 10^6/uL (4.0-5.20)
[2017-12-08 06:58] LABS: BUN/Creatinine Ratio 26.3; Calcium 8.4 mg/dL (8.5-10.1); Potassium 3.7 mmol/L (3.5-5.1)
[2017-12-08 07:13] LABS: Red Cell Distribution Width 22.7 % (11.8-14.3)
[2017-12-08] MEDS: PRO-STAT 64 30ML PO SCH (07:13)
[2017-12-08 08:00] VITALS: BP 89/60
[2017-12-08] MEDS: cefTRIAXone 1GM/10ml IVPUSH 10 ML IV SCH (08:11)
[2017-12-08 09:00] VITALS: BP 89/60
[2017-12-08] MEDS ORDERED: DOXY-216 PO (09:34)
[2017-12-08] MEDS ORDERED: PROM25TA5 PO (09:34)
[2017-12-08] MEDS: ENOXAPARIN SOD 40 MG/0.4 ML SYRINGE SC SCH (09:49)
[2017-12-08] MEDS: FAMOTIDINE 20 MG TAB PO SCH (09:50)
[2017-12-08] MEDS: ASCORBIC ACID 500 MG TAB PO SCH (09:50)
[2017-12-08] MEDS: DOCUSATE SOD 100 MG CAP PO SCH (09:51)
[2017-12-08] MEDS ORDERED: MULTIPLE VITAMINS W/ MINERALS TAB PO SCH (10:00)
[2017-12-08 10:57] VITALS: BP 103/61
[2017-12-08] MEDS: ONDANSETRON HCL 4 MG/2 ML VIAL IV PRN (11:33)
[2017-12-08] MEDS: HYDROcodone-ACET 5/325MG TAB PO PRN (11:33)
[2017-12-08 13:00] VITALS: BP 111/66
== END 2017-12-08 15:05 | disposition home health service (06) | DRG 380 ==
LOC: EDBD 23:14 → ER 23:23 → TELE 23:24 → TELE-EAST 12-06 09:12 → EAST 12-07 13:45
PROVIDERS: ADMIT Nurse Practitioner; ATTEND Internal Medicine
DX: L89.154 Pressure ulcer of sacral region, stage 4 (principal); G82.50 Quadriplegia, unspecified; E43 Unspecified severe protein-calorie malnutrition; Z93.0 Tracheostomy status; M41.85 Other forms of scoliosis, thoracolumbar region; N31.9 Neuromuscular dysfunction of bladder, unspecified; D50.9 Iron deficiency anemia, unspecified; F32.9 Major depressive disorder, single episode, unspecified; F41.9 Anxiety disorder, unspecified; B96.89 Other specified bacterial agents as the cause of diseases classified elsewhere; D63.8 Anemia in other chronic diseases classified elsewhere; I10 Essential (primary) hypertension; L89.894 Pressure ulcer of other site, stage 4; N39.0 Urinary tract infection, site not specified; G47.00 Insomnia, unspecified; Z80.1 Family history of malignant neoplasm of trachea, bronchus and lung; Z81.8 Family history of other mental and behavioral disorders; Z68.1 Body mass index [BMI] 19.9 or less, adult; Z82.3 Family history of stroke; Z82.49 Family history of ischemic heart disease and other diseases of the circulatory system; Z83.3 Family history of diabetes mellitus; Z87.442 Personal history of urinary calculi; Z71.3 Dietary counseling and surveillance; Z87.828 Personal history of other (healed) physical injury and trauma; Z88.1 Allergy status to other antibiotic agents; Z79.899 Other long term (current) drug therapy; Z91.19 Patient's noncompliance with other medical treatment and regimen
CPT/HCPCS: 36415; 71045; 80048; 80053; 81001; 83605; 83735; 85025; 87040; 87077; 87081; 87186; 87205; 94640; 94761; 96361; 96365; 96375; J1642; J2405; J3490

== ENCOUNTER 2021-11-13 10:54 | Inpatient (IN) | payer MEDICAID ==
[~2021-11-13] VITALS: Ht 154.9 cm; Wt 41.5 kg
[~2021-11-13 10:54] MED LIST changes: -CEFT600I IV; -CEL100T PO; -DOCU-137 PO; +DOCU1CAP46 PO; +MECL12.514 PO; -MECL12.554 PO; -ONDA4TAB5 PO; -PRE5T PO; -SERT-274 PO; +SERT50TA19 PO
[2021-11-13] MEDS ORDERED: VANCOMYCIN 1GM/250ML 250 ML IV ONE (14:30)
[2021-11-13] MEDS ORDERED: HYDROmorphone HCL 2 MG/ML VL IV ONE ×2 (14:30→21:30)
[2021-11-13] MEDS ORDERED: CEFEPIME 1 GM in SODIUM CHL 0.9% 50 ML IV ONE (14:30)
[2021-11-13 14:50] LABS: Basophils # (auto) 0 10 ^3/uL (0-0.2); Eosinophils # (auto) 0.1 10 ^3/uL (0-0.8); Eosinophils % (auto) 0.8 % (0.0-7.0); Hemoglobin 10.4 g/dL (12.2-16.2); Monocytes # (auto) 0.4 10 ^3/uL (0-1.3); Neutrophils # (auto) 3.3 10 ^3/uL (1.6-8.6); Red Blood Cells 4.88 10^6/uL (4.0-5.20); White Blood Cell 6.3 10^3/uL (4.4-10.8)
[2021-11-13 14:52] LABS: Basophils % (auto) 0.6 % (0.0-2.0); Hematocrit 31.4 % (36.0-46.0); Lymphocytes # (auto) 2.6 10 ^3/uL (0.4-5.4); Lymphocytes % (auto) 41.1 % (10.0-50.0); Mean Corpuscular Hemoglobin 21.3 pg (28.0-32.0); Mean Corpuscular Hgb Conc. 33.1 g/dL (32.0-36.0); Mean Corpuscular Volume 64.3 fL (80.0-100.0); Monocytes % (auto) 5.9 % (0.0-12.0); Neutrophils % (auto) 51.6 % (37.0-80.0); Nucleated Red Blood Cells % 0.2 %
[2021-11-13 14:57] LABS: Red Cell Distribution Width 20.1 % (11.8-14.3)
[2021-11-13 15:11] LABS: Albumin 3.4 g/dL (3.4-5.0); Anion Gap 8 (5-15); Blood Urea Nitrogen 7 mg/dL (7-18); Calcium 9.1 mg/dL (8.5-10.1); Carbon Dioxide 23 mmol/L (21-32); Chloride 106 mmol/L (98-107); Glucose 78 mg/dL (74-106); Potassium 3.8 mmol/L (3.5-5.1); Sodium 137 mmol/L (136-145)
[2021-11-13 15:18] LABS: Alanine Aminotransferase < 6 U/L (13-56); Alkaline Phosphatase 131 U/L (45-117); Aspartate Aminotransferase 10 U/L (15-37); BUN/Creatinine Ratio 25.9; Bilirubin, Total 0.3 mg/dL (0.2-1.0); GFR African American 379 mL/min; GFR Non-African American 314 mL/min; Total Protein 11.2 g/dL (6.4-8.2)
[2021-11-13] MEDS ORDERED: ONDANSETRON HCL 4 MG/2 ML VIAL ONE (15:23)
[2021-11-13] MEDS ORDERED: diphenhdrAMINE HCL 50 MG/1 ML VL IV ONE (15:30)
[2021-11-13] MEDS ORDERED: ONDANSETRON HCL 4 MG/2 ML VIAL IV ONE (15:30)
[2021-11-13] MEDS: HYDROcodone-ACET 5/325MG TAB PO PRN (19:09)
[2021-11-14] MEDS: CLINDAMYCIN 600MG IV 50 ML IV SCH ×4 (01:45→22:45)
[2021-11-14] MEDS: GABAPENTIN 300 MG CAP PO SCH ×4 (01:45→22:45)
[2021-11-14] MEDS: ONDANSETRON HCL 4 MG/2 ML VIAL IV PRN ×2 (01:51→10:48)
[2021-11-14] MEDS ORDERED: cefTRIAXone 1GM/50ML D5W 50 ML IV SCH (09:00)
[2021-11-14] MEDS ORDERED: SERTRALINE HCL 50 MG TAB PO SCH (10:00)
[2021-11-14] MEDS: HYDROcodone-ACET 5/325MG TAB PO PRN (10:48)
[2021-11-14] MEDS ORDERED: MORPHINE SULFATE INJECTION 2 MG/ML SYRG IV PRN ×2 (14:45→22:30)
[2021-11-14] MEDS ORDERED: MORPHINE SULFATE 4 MG/ML SYR/VIAL IV PRN (20:45)
[2021-11-14] MEDS ORDERED: ACETAMINOPHEN 325 MG TAB PO PRN (20:45)
[2021-11-14] MEDS ORDERED: ONDANSETRON HCL 4 MG/2 ML VIAL IV PRN (20:45)
[2021-11-14] MEDS ORDERED: DOCUSATE SOD 100 MG CAP PO SCH (22:00)
[2021-11-14] MEDS ORDERED: FAMOTIDINE (10MG/ML) 2ML VL IV SCH (22:00)
[2021-11-14] MEDS ORDERED: ASCORBIC ACID 500 MG TAB PO SCH (22:00)
[2021-11-14] MEDS ORDERED: BACLOFEN 10 MG TAB PO SCH (22:00)
[2021-11-14] MEDS ORDERED: HEPARIN SODIUM (PORCINE) 5000 UNITS/ML 1ML VIAL SC SCH (22:00)
[2021-11-14] MEDS ORDERED: SODIUM CHLOR 0.9% PF (SALINE LOCK) 10ML VIAL/SYR IV SCH (22:00)
[2021-11-14] MEDS ORDERED: NITROGLYCERIN 0.4 MG SL TAB SL PRN (22:30)
[2021-11-15] VITALS (8 sets, daily range): BP systolic 96–137; BP diastolic 53–87
[2021-11-15] MEDS ORDERED: HYDROcodone-ACET 5/325MG TAB PO PRN (04:15)
[2021-11-15] MEDS ORDERED: MORPHINE SULFATE INJECTION 2 MG/ML SYRG IV PRN (04:15)
[2021-11-15] MEDS ORDERED: ACETAMINOPHEN 325 MG TAB PO PRN (04:15)
[2021-11-15] MEDS ORDERED: NITROGLYCERIN 0.4 MG SL TAB SL PRN (04:15)
[2021-11-15] MEDS: MORPHINE SULFATE 4 MG/ML SYR/VIAL IV PRN ×2 (04:18→13:02)
[2021-11-15] MEDS: ONDANSETRON HCL 4 MG/2 ML VIAL IV PRN ×3 (05:07→15:00)
[2021-11-15] MEDS: CLINDAMYCIN 600MG IV 50 ML IV SCH ×3 (06:00→22:00)
[2021-11-15] MEDS: SODIUM CHLOR 0.9% PF (SALINE LOCK) 10ML VIAL/SYR IV SCH ×3 (06:00→22:00)
[2021-11-15] MEDS: BACLOFEN 10 MG TAB PO SCH ×3 (06:00→22:00)
[2021-11-15] MEDS: GABAPENTIN 300 MG CAP PO SCH ×3 (06:00→22:00)
[2021-11-15] MEDS ORDERED: HEPARIN SODIUM (PORCINE) 5000 UNITS/ML 1ML VIAL ONE (09:39)
[2021-11-15] MEDS: FAMOTIDINE (10MG/ML) 2ML VL IV SCH ×2 (09:52→22:00)
[2021-11-15] MEDS: cefTRIAXone 1GM/50ML D5W 50 ML IV SCH (09:52)
[2021-11-15] MEDS: MULTIPLE VITAMIN TAB PO SCH ×2 (09:53→10:00)
[2021-11-15] MEDS: ZINC SULFATE 220mg CAP or TAB PO SCH ×2 (09:53→10:00)
[2021-11-15] MEDS: DOCUSATE SOD 100 MG CAP PO SCH ×3 (09:53→22:00)
[2021-11-15] MEDS: ASCORBIC ACID 500 MG TAB PO SCH ×3 (09:54→22:00)
[2021-11-15] MEDS: SERTRALINE HCL 50 MG TAB PO SCH ×2 (09:54→10:00)
[2021-11-15] MEDS: HEPARIN SODIUM (PORCINE) 5000 UNITS/ML 1ML VIAL SC SCH ×2 (09:58→22:00)
[2021-11-15] MEDS ORDERED: ZINC SULFATE 220mg CAP or TAB PO SCH (10:00)
[2021-11-15] MEDS ORDERED: MULTIPLE VITAMIN TAB PO SCH (10:00)
[2021-11-15] MEDS: HYDROmorphone HCL 2 MG/ML VL IV PRN ×2 (15:00→19:54)
[2021-11-15] MEDS: PROMETHAZINE HCL 25 MG/ML 1ML IV PRN (19:54)
[2021-11-16] MEDS: PROMETHAZINE HCL 25 MG/ML 1ML IV PRN ×3 (04:54→20:22)
[2021-11-16] MEDS: HYDROmorphone HCL 2 MG/ML VL IV PRN ×3 (04:54→20:23)
[2021-11-16 05:00] VITALS: BP 102/66
[2021-11-16] MEDS: CLINDAMYCIN 600MG IV 50 ML IV SCH ×2 (06:03→13:56)
[2021-11-16] MEDS: BACLOFEN 10 MG TAB PO SCH ×3 (06:04→23:43)
[2021-11-16] MEDS: SODIUM CHLOR 0.9% PF (SALINE LOCK) 10ML VIAL/SYR IV SCH ×3 (06:04→21:31)
[2021-11-16] MEDS: GABAPENTIN 300 MG CAP PO SCH ×3 (06:05→23:43)
[2021-11-16 09:00] VITALS: BP 107/73
[2021-11-16] MEDS: FAMOTIDINE (10MG/ML) 2ML VL IV SCH ×2 (09:33→23:43)
[2021-11-16] MEDS: cefTRIAXone 1GM/50ML D5W 50 ML IV SCH (09:33)
[2021-11-16] MEDS: ASCORBIC ACID 500 MG TAB PO SCH ×2 (10:00→23:44)
[2021-11-16] MEDS: ZINC SULFATE 220mg CAP or TAB PO SCH (10:00)
[2021-11-16] MEDS: MULTIPLE VITAMIN TAB PO SCH (10:00)
[2021-11-16] MEDS: SERTRALINE HCL 50 MG TAB PO SCH (10:00)
[2021-11-16] MEDS: DOCUSATE SOD 100 MG CAP PO SCH ×2 (10:00→23:43)
[2021-11-16] MEDS: HEPARIN SODIUM (PORCINE) 5000 UNITS/ML 1ML VIAL SC SCH ×2 (10:10→21:31)
[2021-11-16 12:52] VITALS: BP 82/43
[2021-11-16 16:39] VITALS: BP 117/82
[2021-11-16] MEDS ORDERED: LINEZOLID 600MG/300ML 300 ML IV SCH (18:00)
[2021-11-16] MEDS: LINEZOLID 600MG/300ML 300 ML IV SCH (18:18)
[2021-11-16 22:00] VITALS: BP 90/57
[2021-11-16 22:30] VITALS: BP 95/64
[2021-11-17] MEDS: CEFTAZIDIME AVIBACTAM IV SCH ×2 (01:27→06:55)
[2021-11-17] MEDS: D5W 5% IV SCH ×3 (01:27→14:57)
[2021-11-17 05:00] VITALS: BP 104/73
[2021-11-17] MEDS: GABAPENTIN 300 MG CAP PO SCH ×3 (05:14→22:00)
[2021-11-17] MEDS: BACLOFEN 10 MG TAB PO SCH ×3 (05:14→22:00)
[2021-11-17] MEDS: LINEZOLID 600MG/300ML 300 ML IV SCH (05:14)
[2021-11-17] MEDS: PROMETHAZINE HCL 25 MG/ML 1ML IV PRN ×3 (05:14→22:45)
[2021-11-17] MEDS: HYDROmorphone HCL 2 MG/ML VL IV PRN ×4 (05:15→22:46)
[2021-11-17] MEDS: SODIUM CHLOR 0.9% PF (SALINE LOCK) 10ML VIAL/SYR IV SCH ×3 (05:47→22:00)
[2021-11-17 08:00] VITALS: BP 94/56
[2021-11-17 08:06] LABS: Basophils # (auto) 0 10 ^3/uL (0-0.2); Basophils % (auto) 0.4 % (0.0-2.0); Eosinophils # (auto) 0 10 ^3/uL (0-0.8); Eosinophils % (auto) 0.5 % (0.0-7.0); Lymphocytes # (auto) 2.1 10 ^3/uL (0.4-5.4); Monocytes # (auto) 0.7 10 ^3/uL (0-1.3); Monocytes % (auto) 11.2 % (0.0-12.0); Nucleated Red Blood Cells % 0.1 %
[2021-11-17 08:09] LABS: Hematocrit 23.9 % (36.0-46.0); Hemoglobin 8.1 g/dL (12.2-16.2); Lymphocytes % (auto) 34.4 % (10.0-50.0); Neutrophils # (auto) 3.3 10 ^3/uL (1.6-8.6); Neutrophils % (auto) 53.5 % (37.0-80.0); Red Blood Cells 3.81 10^6/uL (4.0-5.20); White Blood Cell 6.2 10^3/uL (4.4-10.8)
[2021-11-17 08:13] LABS: Mean Corpuscular Hemoglobin 21.4 pg (28.0-32.0); Mean Corpuscular Volume 62.9 fL (80.0-100.0)
[2021-11-17 08:14] LABS: Red Cell Distribution Width 20.2 % (11.8-14.3)
[2021-11-17 08:33] LABS: Albumin 2.6 g/dL (3.4-5.0); BUN/Creatinine Ratio 13.2; Bilirubin, Total 0.2 mg/dL (0.2-1.0); Calcium 8.4 mg/dL (8.5-10.1); Total Protein 9.1 g/dL (6.4-8.2)
[2021-11-17 08:52] LABS: Potassium 2.9 mmol/L (3.5-5.1)
[2021-11-17] MEDS: DOCUSATE SOD 100 MG CAP PO SCH ×2 (10:54→22:44)
[2021-11-17] MEDS: FAMOTIDINE (10MG/ML) 2ML VL IV SCH ×2 (10:54→22:44)
[2021-11-17] MEDS: SERTRALINE HCL 50 MG TAB PO SCH (10:54)
[2021-11-17] MEDS: ASCORBIC ACID 500 MG TAB PO SCH ×2 (10:54→22:00)
[2021-11-17] MEDS: MULTIPLE VITAMIN TAB PO SCH (10:54)
[2021-11-17] MEDS: ZINC SULFATE 220mg CAP or TAB PO SCH (10:55)
[2021-11-17] MEDS: POTASSIUM CHL 20MEQ/50ML 50 ML IV SCH ×3 (10:55→18:22)
[2021-11-17] MEDS ORDERED: TOBRAMYCIN PER PHARMACY 0 ML IV SCH (11:00)
[2021-11-17] MEDS: HEPARIN SODIUM (PORCINE) 5000 UNITS/ML 1ML VIAL SC SCH ×2 (11:09→22:00)
[2021-11-17 12:00] VITALS: BP 119/82
[2021-11-17] MEDS: CIPROFLOXACIN 400MG/200ML 200 ML IV SCH (13:40)
[2021-11-17] MEDS: TOBRAMYCIN IV SCH (14:57)
[2021-11-17 17:00] VITALS: BP 104/66
[2021-11-17 22:00] VITALS: BP 119/78
[2021-11-18 05:30] VITALS: BP 109/71
[2021-11-18] MEDS: GABAPENTIN 300 MG CAP PO SCH ×2 (05:54→14:00)
[2021-11-18] MEDS: SODIUM CHLOR 0.9% PF (SALINE LOCK) 10ML VIAL/SYR IV SCH ×2 (05:54→14:00)
[2021-11-18] MEDS: BACLOFEN 10 MG TAB PO SCH ×2 (05:54→14:00)
[2021-11-18] MEDS: PROMETHAZINE HCL 25 MG/ML 1ML IV PRN ×2 (06:12→13:09)
[2021-11-18] MEDS: HYDROmorphone HCL 2 MG/ML VL IV PRN ×2 (06:13→13:09)
[2021-11-18 07:57] LABS: Basophils # (auto) 0 10 ^3/uL (0-0.2); Basophils % (auto) 0.4 % (0.0-2.0); Eosinophils # (auto) 0.1 10 ^3/uL (0-0.8); Eosinophils % (auto) 1.6 % (0.0-7.0); Hematocrit 23.8 % (36.0-46.0); Hemoglobin 7.8 g/dL (12.2-16.2); Monocytes # (auto) 0.5 10 ^3/uL (0-1.3); Monocytes % (auto) 9.8 % (0.0-12.0); Neutrophils # (auto) 2.8 10 ^3/uL (1.6-8.6); Neutrophils % (auto) 51.2 % (37.0-80.0); Nucleated Red Blood Cells % 0.1 %; Red Blood Cells 3.71 10^6/uL (4.0-5.20); White Blood Cell 5.5 10^3/uL (4.4-10.8)
[2021-11-18 07:58] LABS: Mean Corpuscular Volume 64.2 fL (80.0-100.0)
[2021-11-18 07:59] LABS: Mean Corpuscular Hemoglobin 21.1 pg (28.0-32.0); Mean Corpuscular Hgb Conc. 32.9 g/dL (32.0-36.0)
[2021-11-18 08:00] LABS: BUN/Creatinine Ratio 13.8; Calcium 8.6 mg/dL (8.5-10.1); Potassium 3.8 mmol/L (3.5-5.1)
[2021-11-18 09:00] VITALS: BP 103/70
[2021-11-18] MEDS: FAMOTIDINE (10MG/ML) 2ML VL IV SCH (09:03)
[2021-11-18] MEDS: SERTRALINE HCL 50 MG TAB PO SCH (10:00)
[2021-11-18] MEDS: ZINC SULFATE 220mg CAP or TAB PO SCH (12:57)
[2021-11-18] MEDS: DOCUSATE SOD 100 MG CAP PO SCH (12:57)
[2021-11-18] MEDS: MULTIPLE VITAMIN TAB PO SCH (12:58)
[2021-11-18] MEDS: ASCORBIC ACID 500 MG TAB PO SCH (12:58)
[2021-11-18] MEDS: CIPROFLOXACIN 400MG/200ML 200 ML IV SCH ×2 (12:58)
[2021-11-18] MEDS: HEPARIN SODIUM (PORCINE) 5000 UNITS/ML 1ML VIAL SC SCH (12:59)
[2021-11-18 13:00] VITALS: BP 94/63
[2021-11-18] MEDS: TOBRAMYCIN IV SCH (15:19)
[2021-11-18] MEDS: D5W 5% IV SCH (15:19)
[2021-11-18 17:00] VITALS: BP 82/46
== END 2021-11-18 18:30 | disposition home health service (06) | DRG 721 ==
LOC: EDBD 10:54 → ER 10:54 → WEST WING 11-14 22:18 → ER 11-15 01:57
PROVIDERS: ADMIT Nurse Practitioner Family; ATTEND Family Medicine
DX: T81.49XA Infection following a procedure, other surgical site, initial encounter (principal); L89.154 Pressure ulcer of sacral region, stage 4; E43 Unspecified severe protein-calorie malnutrition; G82.20 Paraplegia, unspecified; I95.9 Hypotension, unspecified; Z20.822 Contact with and (suspected) exposure to COVID-19; I10 Essential (primary) hypertension; K59.00 Constipation, unspecified; F32.9 Major depressive disorder, single episode, unspecified; F41.9 Anxiety disorder, unspecified; G62.9 Polyneuropathy, unspecified; G89.29 Other chronic pain; K21.9 Gastro-esophageal reflux disease without esophagitis; M54.50 Low back pain, unspecified; E88.09 Other disorders of plasma-protein metabolism, not elsewhere classified; Y83.8 Other surgical procedures as the cause of abnormal reaction of the patient, or of later complication, without mention of misadventure at the time of the procedure; Z74.01 Bed confinement status; Z79.899 Other long term (current) drug therapy; Z88.1 Allergy status to other antibiotic agents; Z88.5 Allergy status to narcotic agent; Z68.1 Body mass index [BMI] 19.9 or less, adult; Z80.1 Family history of malignant neoplasm of trachea, bronchus and lung; Z81.8 Family history of other mental and behavioral disorders; Z82.3 Family history of stroke; Z82.49 Family history of ischemic heart disease and other diseases of the circulatory system; Z83.3 Family history of diabetes mellitus; Z87.442 Personal history of urinary calculi; Y92.89 Other specified places as the place of occurrence of the external cause
CPT/HCPCS: 36415; 74176; 80048; 80053; 80200; 83605; 85025; 87040; 87077; 87186; 87205; 87426; 96365; 96366; 96367; 96375; 96376; A4605; G0378; J0696; J0714; J2405; J3490; J7060

== ENCOUNTER 2022-02-27 02:17 | Emergency (ER) | payer MEDICAID ==
[~2022-02-27] VITALS: Ht 165.1 cm; Wt 54.4 kg
[2022-02-27] MEDS ORDERED: HYDROmorphone HCL 2 MG/ML VL IV ONE ×2 (04:00→17:15)
[2022-02-27 04:30] LABS: Basophils # (auto) 0 10 ^3/uL (0-0.2); Eosinophils # (auto) 0.2 10 ^3/uL (0-0.8); Lymphocytes # (auto) 2.2 10 ^3/uL (0.4-5.4); Monocytes # (auto) 0.6 10 ^3/uL (0-1.3); White Blood Cell 6.7 10^3/uL (4.4-10.8)
[2022-02-27 04:32] LABS: Basophils % (auto) 0.6 % (0.0-2.0); Eosinophils % (auto) 2.6 % (0.0-7.0); Hematocrit 22.3 % (36.0-46.0); Hemoglobin 7.4 g/dL (12.2-16.2); Lymphocytes % (auto) 32.4 % (10.0-50.0); Mean Corpuscular Hemoglobin 20.5 pg (28.0-32.0); Mean Corpuscular Hgb Conc. 33.2 g/dL (32.0-36.0); Mean Corpuscular Volume 61.7 fL (80.0-100.0); Monocytes % (auto) 8.4 % (0.0-12.0); Neutrophils # (auto) 3.7 10 ^3/uL (1.6-8.6); Nucleated Red Blood Cells % 0.2 %; Red Blood Cells 3.61 10^6/uL (4.0-5.20); Red Cell Distribution Width 19.8 % (11.8-14.3)
[2022-02-27 04:49] LABS: Albumin 2.6 g/dL (3.4-5.0); Calcium 8.8 mg/dL (8.5-10.1); Potassium 3.2 mmol/L (3.5-5.1)
[2022-02-27 04:51] LABS: BUN/Creatinine Ratio 25.8
[2022-02-27 04:54] LABS: Bilirubin, Total 0.1 mg/dL (0.2-1.0); Total Protein 9.7 g/dL (6.4-8.2)
[2022-02-27 05:44] LABS: Urine Bacteria NONE SEEN /hpf (None Seen); Urine Blood Negative /uL (Negative); Urine Specific Gravity 1.007 (1.001-1.035); Urine WBC 3 /hpf (0 - 5)
[2022-02-27] MEDS ORDERED: ONDANSETRON HCL 4 MG/2 ML VIAL IV ONE ×4 (08:00→20:45)
[2022-02-27] MEDS ORDERED: PIPERACILLIN-TAZOB 3.375GM 100 ML IV ONE (18:30)
[2022-02-27] MEDS ORDERED: HYDR-4798 PO (18:44)
[2022-02-27] MEDS ORDERED: KETOROLAC TROMETH 60MG/2ML VIAL IM ONE (20:45)
[2022-02-28] MEDS ORDERED: ONDANSETRON HCL 4 MG/2 ML VIAL IV ONE (01:15)
[2022-02-28] MEDS ORDERED: HYDROmorphone HCL 2 MG/ML VL IM ONE (01:15)
[2022-02-28] MEDS ORDERED: HYDROcodone-ACET 5/325MG TAB PO ONE (11:00)
[2022-02-28 12:22] VITALS: BP 103/70
== END 2022-02-28 16:10 | disposition home or self-care (01) ==
LOC: EDBD 02:17 → ER 02:17
DX: G82.50 Quadriplegia, unspecified (principal); M00.9 Pyogenic arthritis, unspecified; Z79.899 Other long term (current) drug therapy; Z88.1 Allergy status to other antibiotic agents; Z88.5 Allergy status to narcotic agent; Z20.822 Contact with and (suspected) exposure to COVID-19
CPT/HCPCS: 36415; 74176; 80053; 81001; 83605; 85025; 87426; 96365; 96366; 96372; 96375; 96376; 99285; J1170; J1885; J2405; J2543

== ENCOUNTER 2022-03-14 13:29 | Emergency (ER) | payer MEDICAID ==
[~2022-03-14] VITALS: Ht 165.1 cm; Wt 43.1 kg
[~2022-03-14 13:29] MED LIST changes: +HYDR-4798 PO
[2022-03-14 14:38] LABS: Eosinophils # (auto) 0.2 10 ^3/uL (0-0.8); Mean Corpuscular Hemoglobin 19.7 pg (28.0-32.0)
[2022-03-14 14:40] LABS: Basophils # (auto) 0.2 10 ^3/uL (0-0.2); Basophils % (auto) 2.9 % (0.0-2.0); Hematocrit 24.6 % (36.0-46.0); Hemoglobin 8.1 g/dL (12.2-16.2); Lymphocytes # (auto) 2.6 10 ^3/uL (0.4-5.4); Mean Corpuscular Hgb Conc. 32.7 g/dL (32.0-36.0); Mean Corpuscular Volume 60.2 fL (80.0-100.0); Monocytes # (auto) 0.5 10 ^3/uL (0-1.3); Monocytes % (auto) 9.4 % (0.0-12.0); Neutrophils # (auto) 2.3 10 ^3/uL (1.6-8.6); Neutrophils % (auto) 39.7 % (37.0-80.0); Nucleated Red Blood Cells % 0.1 %; Red Blood Cells 4.09 10^6/uL (4.0-5.20); Red Cell Distribution Width 20.1 % (11.8-14.3); White Blood Cell 5.7 10^3/uL (4.4-10.8)
[2022-03-14 14:56] LABS: Albumin 2.6 g/dL (3.4-5.0); BUN/Creatinine Ratio 48.5; Calcium 8.4 mg/dL (8.5-10.1); Potassium 3.6 mmol/L (3.5-5.1)
[2022-03-14 15:03] LABS: Bilirubin, Total 0.2 mg/dL (0.2-1.0); Total Protein 9.9 g/dL (6.4-8.2)
[2022-03-14] MEDS ORDERED: HYDROcodone-ACET 10/325MG TAB PO ONE (20:45)
[2022-03-15] VITALS: BP 97/54
== END 2022-03-15 01:42 | disposition home or self-care (01) ==
LOC: EDUNIT# 13:29 → ER 13:29 → EDBD 13:29 → ER 03-15 01:42
DX: D64.9 Anemia, unspecified (principal); Z88.1 Allergy status to other antibiotic agents; Z88.6 Allergy status to analgesic agent
CPT/HCPCS: 36415; 80053; 85025; 86850; 86900; 86901

== ENCOUNTER 2022-04-06 16:10 | Emergency (ER) | payer MEDICAID ==
[~2022-04-06] VITALS: Ht 160 cm; Wt 45.4 kg
[2022-04-06 18:25] LABS: Basophils # (auto) 0 10 ^3/uL (0-0.2); Basophils % (auto) 0.5 % (0.0-2.0); Eosinophils # (auto) 0.2 10 ^3/uL (0-0.8); Eosinophils % (auto) 3.4 % (0.0-7.0); Hematocrit 24.6 % (36.0-46.0); Hemoglobin 8.2 g/dL (12.2-16.2); Lymphocytes % (auto) 38.7 % (10.0-50.0); Mean Corpuscular Hemoglobin 19.9 pg (28.0-32.0); Mean Corpuscular Hgb Conc. 33.2 g/dL (32.0-36.0); Mean Corpuscular Volume 59.9 fL (80.0-100.0); Monocytes # (auto) 0.3 10 ^3/uL (0-1.3); Monocytes % (auto) 6.4 % (0.0-12.0); Neutrophils # (auto) 2.6 10 ^3/uL (1.6-8.6); Nucleated Red Blood Cells % 0.3 %; Red Blood Cells 4.11 10^6/uL (4.0-5.20); White Blood Cell 5.2 10^3/uL (4.4-10.8)
[2022-04-06] MEDS: VANCOMYCIN 1GM/250ML 250 ML IV ONE ×2 (18:30→18:58)
[2022-04-06] MEDS ORDERED: PIPERACILLIN-TAZOB 3.375GM 100 ML IV ONE (18:30)
[2022-04-06 18:37] LABS: Albumin 2.9 g/dL (3.4-5.0); Calcium 8.5 mg/dL (8.5-10.1); Potassium 3.4 mmol/L (3.5-5.1)
[2022-04-06 18:41] LABS: Bilirubin, Total 0.2 mg/dL (0.2-1.0); Total Protein 11.2 g/dL (6.4-8.2)
[2022-04-06 18:44] LABS: Urine Bacteria NONE SEEN /hpf (None Seen); Urine Blood Negative /uL (Negative); Urine Budding Yeast LOADED /hpf (None Seen); Urine Mucus FEW (None Seen); Urine Specific Gravity 1.012 (1.001-1.035); Urine WBC 6 /hpf (0 - 5)
[2022-04-06] MEDS ORDERED: HYDROmorphone HCL 2 MG/ML VL/or syr IV ONE (21:00)
[2022-04-06] MEDS ORDERED: ONDANSETRON HCL 4 MG/2 ML VIAL IV ONE (21:00)
[2022-04-06 22:00] VITALS: BP 116/63
[2022-04-06] MEDS ORDERED: IPRA0.03 (22:32)
[2022-04-06] MEDS ORDERED: ALBU108A5 IN (22:32)
[2022-04-06] MEDS ORDERED: HYDR-4798 PO (22:32)
== END 2022-04-06 23:48 | disposition home or self-care (01) ==
LOC: EDBD 16:10 → ER 16:10
DX: L89.153 Pressure ulcer of sacral region, stage 3 (principal); Z87.442 Personal history of urinary calculi
CPT/HCPCS: 36415; 71045; 80053; 81001; 85025; 87205; 96365; 96366; 96375; 99284; J1170; J2405; J2543; J3370; 87077; 87186

== ENCOUNTER 2022-07-25 08:14 | Emergency (ER) | payer MEDICAID ==
[~2022-07-25] VITALS: Ht 157.5 cm; Wt 40.1 kg
[~2022-07-25 08:14] MED LIST changes: +ALBU108A5 IN; +IPRA0.03
[2022-07-25] MEDS ORDERED: cefTRIAXone 1GM/50ML D5W 50 ML IV ONE (09:30)
[2022-07-25 11:14] LABS: Basophils # (auto) 0 10 ^3/uL (0-0.2); Eosinophils # (auto) 0.3 10 ^3/uL (0-0.8); Hemoglobin 8.6 g/dL (12.2-16.2); Monocytes # (auto) 0.5 10 ^3/uL (0-1.3)
[2022-07-25 11:16] LABS: Basophils % (auto) 0.6 % (0.0-2.0); Eosinophils % (auto) 4.8 % (0.0-7.0); Hematocrit 25.9 % (36.0-46.0); Lymphocytes # (auto) 1.8 10 ^3/uL (0.4-5.4); Lymphocytes % (auto) 25.7 % (10.0-50.0); Mean Corpuscular Hemoglobin 20.9 pg (28.0-32.0); Mean Corpuscular Volume 63.3 fL (80.0-100.0); Monocytes % (auto) 6.7 % (0.0-12.0); Neutrophils # (auto) 4.4 10 ^3/uL (1.6-8.6); Neutrophils % (auto) 62.2 % (37.0-80.0); Nucleated Red Blood Cells % 0.2 %; Red Blood Cells 4.09 10^6/uL (4.0-5.20)
[2022-07-25 11:27] LABS: INR 1.16 (0.9-1.15)
[2022-07-25 11:28] LABS: Red Cell Distribution Width 22.7 % (11.8-14.3)
[2022-07-25 11:34] LABS: Urine Bacteria NONE SEEN /hpf (None Seen); Urine Blood Negative /uL (Negative); Urine Budding Yeast MODERATE /hpf (None Seen); Urine Specific Gravity 1.011 (1.001-1.035); Urine WBC 7 /hpf (0 - 5)
[2022-07-25 11:37] LABS: Albumin 2.8 g/dL (3.4-5.0); Potassium 3.8 mmol/L (3.5-5.1)
[2022-07-25 11:39] LABS: Alcohol, Urine < 3.0 mg/dL (0-10); Amphetamine Screen, Urine NEGATIVE (NEGATIVE); Barbiturate Scree,Urine NEGATIVE (NEGATIVE); Benzodiazephine Screen, Urine NEGATIVE (NEGATIVE); Cannabinoid Screen, Urine POSITIVE (NEGATIVE); Cocaine Screen, Urine NEGATIVE (NEGATIVE); Opiate Scree,Urine NEGATIVE (NEGATIVE); Phencyclidine Screen, Urine NEGATIVE (NEGATIVE)
[2022-07-25 12:10] LABS: BUN/Creatinine Ratio 36.1; Bilirubin, Total 0.3 mg/dL (0.2-1.0); Calcium 9.6 mg/dL (8.5-10.1); Total Protein 10.8 g/dL (6.4-8.2)
[2022-07-25] MEDS ORDERED: IOHEXOL 300 MG/ML 100ML BOTTLE IJ ONE (12:58)
[2022-07-25] MEDS ORDERED: NITR-87 PO (15:41)
[2022-07-25 16:04] VITALS: BP 97/70
== END 2022-07-25 16:25 | disposition home or self-care (01) ==
LOC: EDBD 08:14 → ER 08:14
DX: L89.153 Pressure ulcer of sacral region, stage 3 (principal); D53.9 Nutritional anemia, unspecified; N39.0 Urinary tract infection, site not specified; Z79.899 Other long term (current) drug therapy; Z88.1 Allergy status to other antibiotic agents; Z88.5 Allergy status to narcotic agent; Z88.8 Allergy status to other drugs, medicaments and biological substances
CPT/HCPCS: 36415; 71045; 74177; 80053; 80307; 81001; 81025; 85025; 85610; 85730; 93005; 96365; 99285; J0696; Q9967

== ENCOUNTER 2022-09-29 12:13 | Inpatient (IN) | payer MEDICAID ==
[~2022-09-29] VITALS: Ht 162.6 cm; Wt 43.0 kg
[~2022-09-29 12:13] MED LIST changes: +NITR-87 PO
[2022-09-29] MEDS ORDERED: SODIUM CHLORIDE 0.9% 1,000 ML IV ONE ×2 (13:15)
[2022-09-29 14:28] LABS: Basophils # (auto) 0 10 ^3/uL (0-0.2); Eosinophils # (auto) 0.1 10 ^3/uL (0-0.8); Mean Corpuscular Hgb Conc. 32.9 g/dL (32.0-36.0); Nucleated Red Blood Cells % 0.1 %; White Blood Cell 7.2 10^3/uL (4.4-10.8)
[2022-09-29 14:30] LABS: Basophils % (auto) 0.3 % (0.0-2.0); Eosinophils % (auto) 1.3 % (0.0-7.0); Hemoglobin 10.9 g/dL (12.2-16.2); Lymphocytes # (auto) 1.4 10 ^3/uL (0.4-5.4); Lymphocytes % (auto) 19.5 % (10.0-50.0); Mean Corpuscular Hemoglobin 23.2 pg (28.0-32.0); Mean Corpuscular Volume 70.4 fL (80.0-100.0); Monocytes # (auto) 0.4 10 ^3/uL (0-1.3); Monocytes % (auto) 5.3 % (0.0-12.0); Neutrophils # (auto) 5.3 10 ^3/uL (1.6-8.6); Neutrophils % (auto) 73.6 % (37.0-80.0); Red Blood Cells 4.69 10^6/uL (4.0-5.20); Red Cell Distribution Width 23.5 % (11.8-14.3)
[2022-09-29 14:46] LABS: Albumin 3.1 g/dL (3.4-5.0); BUN/Creatinine Ratio 25.8; Potassium 3.5 mmol/L (3.5-5.1)
[2022-09-29 14:48] LABS: Bilirubin, Total 0.4 mg/dL (0.2-1.0); Total Protein 10.2 g/dL (6.4-8.2)
[2022-09-29 14:54] LABS: INR 1.12 (0.9-1.15); Partial Thromboplastin Time 31.6 sec (24.6-33.4)
[2022-09-29] MEDS ORDERED: ONDANSETRON HCL 4 MG/2 ML VIAL IV ONE (15:00)
[2022-09-29] MEDS ORDERED: HYDROmorphone HCL 2 MG/ML VL/or syr IV ONE ×2 (15:00→15:45)
[2022-09-29] MEDS ORDERED: cefTRIAXone 1GM/50ML D5W 50 ML IV ONE (16:45)
[2022-09-29] MEDS ORDERED: AZITHROMYCIN 500MG/ 250ML 250 ML IV ONE (16:45)
[2022-09-29] MEDS ORDERED: ALBUTEROL SULF 2.5 MG/0.5ML(0.5%) NEB SOLN NEB ONE (17:15)
[2022-09-29] MEDS ORDERED: IPRATROPIUM BROM 0.5 MG/2.5ML INH SOL NEB ONE (17:15)
[2022-09-29] MEDS ORDERED: methylPREDNISolone SOD SUCC 125 MG/2 ML VL IV ONE (17:15)
[2022-09-29] MEDS ORDERED: ENOXAPARIN SOD 60 MG/0.6 ML SYRINGE SC ONE (17:30)
[2022-09-29] MEDS ORDERED: IOHEXOL 350 MG/ML 100ML IJ ONE (18:46)
[2022-09-29] MEDS ORDERED: ONDANSETRON HCL 4 MG/2 ML VIAL IV PRN (19:00)
[2022-09-29] MEDS ORDERED: DOCUSATE SOD 100 MG CAP PO PRN (19:00)
[2022-09-29] MEDS ORDERED: MORPHINE SULFATE INJ 2 MG/ml SYRG IV PRN (19:00)
[2022-09-29] MEDS ORDERED: NITROGLYCERIN 0.4 MG SL TAB SL PRN (19:00)
[2022-09-29 20:30] VITALS: BP 99/69
[2022-09-29] MEDS: HYDROcodone-ACET 5/325MG TAB PO PRN (21:15)
[2022-09-30] MEDS: HYDROcodone-ACET 5/325MG TAB PO PRN ×3 (01:22→11:27)
[2022-09-30 03:42] LABS: Urine Bacteria FEW /hpf (None Seen); Urine Blood Negative /uL (Negative); Urine Budding Yeast FEW /hpf (None Seen); Urine Mucus FEW (None Seen); Urine Specific Gravity 1.008 (1.001-1.035); Urine WBC 3 /hpf (0 - 5)
[2022-09-30] MEDS: ALBUTEROL SULF 2.5 MG/0.5ML(0.5%) NEB SOLN NEB SCH ×3 (06:08→18:23)
[2022-09-30] MEDS: IPRATROPIUM BROM 0.5 MG/2.5ML INH SOL NEB SCH ×3 (06:08→18:23)
[2022-09-30 07:27] LABS: Basophils # (auto) 0 10 ^3/uL (0-0.2); Eosinophils # (auto) 0 10 ^3/uL (0-0.8); Mean Corpuscular Volume 70.3 fL (80.0-100.0); Monocytes # (auto) 0.3 10 ^3/uL (0-1.3); White Blood Cell 4.6 10^3/uL (4.4-10.8)
[2022-09-30 07:29] LABS: Basophils % (auto) 0.1 % (0.0-2.0); Hematocrit 30.9 % (36.0-46.0); Hemoglobin 10.3 g/dL (12.2-16.2); Lymphocytes # (auto) 1.3 10 ^3/uL (0.4-5.4); Lymphocytes % (auto) 27.4 % (10.0-50.0); Mean Corpuscular Hemoglobin 23.3 pg (28.0-32.0); Mean Corpuscular Hgb Conc. 33.1 g/dL (32.0-36.0); Monocytes % (auto) 6.4 % (0.0-12.0); Neutrophils % (auto) 66.1 % (37.0-80.0); Nucleated Red Blood Cells % 0.1 %
[2022-09-30 07:32] LABS: Red Cell Distribution Width 23.2 % (11.8-14.3)
[2022-09-30 08:07] LABS: Albumin 2.9 g/dL (3.4-5.0); BUN/Creatinine Ratio 30.8; Bilirubin, Total 0.3 mg/dL (0.2-1.0); Calcium 8.5 mg/dL (8.5-10.1); Potassium 3.7 mmol/L (3.5-5.1); Total Protein 9.3 g/dL (6.4-8.2)
[2022-09-30] MEDS ORDERED: cefTRIAXone 1GM/50ML D5W 50 ML IV SCH (09:00)
[2022-09-30] MEDS ORDERED: AZITHROMYCIN 500MG/ 250ML 250 ML IV SCH (10:00)
[2022-09-30] MEDS ORDERED: traZODone HCL 50 MG TAB PO PRN (11:00)
[2022-09-30] MEDS ORDERED: IPRA0.00 IN (11:38)
[2022-09-30] MEDS ORDERED: DOXY-332 PO (11:38)
[2022-09-30] MEDS ORDERED: ACE104IS IN (11:38)
[2022-09-30] MEDS ORDERED: GABAPENTIN 300 MG CAP PO SCH (14:00)
[2022-09-30] MEDS ORDERED: BACLOFEN 10 MG TAB PO SCH (14:00)
[2022-09-30] MEDS ORDERED: CALCIUM W/VIT D (600MG/400IU) TAB PO SCH (18:00)
[2022-09-30 18:50] VITALS: BP 115/77
[2022-09-30] MEDS ORDERED: HYDROcodone-ACET 10/325MG TAB PO SCH (22:00)
[2022-09-30] MEDS ORDERED: FAMOTIDINE 20 MG TAB PO SCH (22:00)
[2022-10-01] MEDS ORDERED: SERTRALINE HCL 50 MG TAB PO SCH (10:00)
[2022-10-01] MEDS ORDERED: FOLIC ACID 1 MG TAB PO SCH (10:00)
[2022-10-01] MEDS ORDERED: DOCUSATE SOD 100 MG CAP PO SCH (10:00)
[2022-10-01] MEDS ORDERED: ENOXAPARIN SOD 40 MG/0.4 ML SYRINGE SC SCH (10:00)
== END 2022-09-30 21:40 | disposition home health service (06) | DRG 139 ==
LOC: EDBD 12:13 → ER 12:22 → TELE 19:21
PROVIDERS: ADMIT Nurse Practitioner Family; ATTEND Hospitalist
DX: J18.9 Pneumonia, unspecified organism (principal); J96.00 Acute respiratory failure, unspecified whether with hypoxia or hypercapnia; G82.50 Quadriplegia, unspecified; L89.153 Pressure ulcer of sacral region, stage 3; Z93.0 Tracheostomy status; Z20.822 Contact with and (suspected) exposure to COVID-19; D64.9 Anemia, unspecified; E87.6 Hypokalemia; F41.9 Anxiety disorder, unspecified; K59.00 Constipation, unspecified; Z80.1 Family history of malignant neoplasm of trachea, bronchus and lung; Z82.3 Family history of stroke; Z81.8 Family history of other mental and behavioral disorders; Z83.3 Family history of diabetes mellitus; Z82.49 Family history of ischemic heart disease and other diseases of the circulatory system; Z87.442 Personal history of urinary calculi; Z88.5 Allergy status to narcotic agent; Z88.8 Allergy status to other drugs, medicaments and biological substances; Z87.828 Personal history of other (healed) physical injury and trauma
CPT/HCPCS: 36415; 71045; 71275; 80053; 81001; 83605; 83880; 85025; 85379; 85610; 85730; 87040; 87426; 94640; 96365; 96367; 96372; 96375; G0378; J0696; J2405

== ENCOUNTER 2024-02-17 21:51 | Inpatient (IN) | payer MEDICAID ==
[~2024-02-17] VITALS: Ht 170.2 cm; Wt 48.1 kg
[~2024-02-17 21:51] MED LIST changes: +ACE104IS IN; +FERR1TAB36 PO; +GABA-1250 PO; -GABA300C10 PO; +IPRA0.00 IN; +MAGN400T40 PO; -MECL12.514 PO; +MECL12.586 PO; +MIDO5TAB4 PO; -NITR-87 PO; +PANT40TA2 PO; +PROM25TA10 PO; -PROM25TA5 PO; +SERT-206 PO; -SERT50TA19 PO; +TRAM-711 PO; +TRAZ-227 PO; -TRAZ50TA2 PO; +VENL75CA3 PO
[2024-02-18 00:38] LABS: Basophils # (auto) 0 10 ^3/uL (0-0.2); Basophils % (auto) 0.6 % (0.0-2.0); Eosinophils # (auto) 0.2 10 ^3/uL (0-0.8); Hematocrit 26.8 % (36.0-46.0); Hemoglobin 9.1 g/dL (12.2-16.2); Lymphocytes # (auto) 2.5 10 ^3/uL (0.4-5.4); Monocytes # (auto) 0.7 10 ^3/uL (0-1.3); Neutrophils # (auto) 4.3 10 ^3/uL (1.6-8.6)
[2024-02-18 00:39] LABS: Eosinophils % (auto) 2.5 % (0.0-7.0); Lymphocytes % (auto) 31.9 % (10.0-50.0); Mean Corpuscular Hemoglobin 24.8 pg (28.0-32.0); Mean Corpuscular Hgb Conc. 34.1 g/dL (32.0-36.0); Mean Corpuscular Volume 72.8 fL (80.0-100.0); Monocytes % (auto) 8.6 % (0.0-12.0); Neutrophils % (auto) 56.4 % (37.0-80.0); Red Blood Cells 3.68 10^6/uL (4.0-5.20); Red Cell Distribution Width 18.4 % (11.8-14.3); White Blood Cell 7.7 10^3/uL (4.4-10.8)
[2024-02-18 00:46] LABS: Chloride 102 mmol/L (98-107); Potassium 3.8 mmol/L (3.5-5.1); Sodium 133 mmol/L (136-145)
[2024-02-18 00:47] LABS: Anion Gap 6 (5-15); Carbon Dioxide 25 mmol/L (20-30)
[2024-02-18 00:48] LABS: Calcium 9.1 mg/dL (8.7-10.4)
[2024-02-18 00:52] LABS: Glucose 87 mg/dL (74-106)
[2024-02-18 00:59] LABS: BUN/Creatinine Ratio 14.3 (10.0-20.0); Blood Urea Nitrogen < 5 mg/dL (9-23)
[2024-02-18] MEDS: SODIUM CHLORIDE 0.9% 500 ML IV ONE (01:04)
[2024-02-18 02:25] VITALS: PULSE 72; RESP 18; O2SAT 96
[2024-02-18] MEDS: MORPHINE SULFATE 4 MG/ML SYR/VIAL IV ONE (02:28)
[2024-02-18] MEDS: ONDANSETRON HCL 4 MG/2 ML VIAL IV ONE ×2 (02:30→09:27)
[2024-02-18] MEDS: HYDROmorphone HCL 2 MG/ML VL/or syr IV ONE ×2 (05:03→09:29)
[2024-02-18 07:21] LABS: Urine Bacteria None Seen /hpf (None Seen)
[2024-02-18 07:50] LABS: Urine Blood Negative /uL (Negative); Urine Budding Yeast MODERATE /hpf (None Seen); Urine Clarity Clear (Clear); Urine Mucus FEW (None Seen); Urine Protein, UAD Negative (Negative); Urine Specific Gravity 1.006 (1.001-1.035); Urine Urobilinogen Normal (Negative); Urine WBC 1 /hpf (0 - 5)
[2024-02-18 07:51] LABS: Urine Color Straw (Yellow)
[2024-02-18 08:23] VITALS: PULSE 87; RESP 20; O2SAT 96
[2024-02-18] MEDS ORDERED: SODIUM CHLORIDE 0.9% 1,000 ML IV SCH (09:45)
[2024-02-18] MEDS ORDERED: VANCOMYCIN PER PHARMACY 0 MG IV SCH ×3 (09:45→10:00)
[2024-02-18] MEDS ORDERED: ENOXAPARIN SOD 40 MG/0.4 ML SYRINGE SC SCH (09:45)
[2024-02-18] MEDS ORDERED: HYDROmorphone HCL 2 MG/ML VL/or syr IV PRN (09:45)
[2024-02-18] MEDS ORDERED: ONDANSETRON HCL 4 MG/2 ML VIAL IV PRN (09:45)
[2024-02-18] MEDS ORDERED: DOCUSATE SOD 100 MG CAP PO PRN ×2 (09:45→10:00)
[2024-02-18] MEDS ORDERED: METO-281 PO (09:48)
[2024-02-18] MEDS ORDERED: diphenhdrAMINE HCL 50 MG/1 ML VL IV PRN (10:00)
[2024-02-18] MEDS: VANCOMYCIN 1GM/200ML 200 ML IV ONE (10:00)
[2024-02-18] MEDS: diphenhdrAMINE HCL 50 MG/1 ML VL IV ONE (10:08)
[2024-02-18] MEDS ORDERED: traZODone HCL 50 MG TAB PO PRN (11:45)
[2024-02-18] MEDS: MIDODRINE HCL 10 MG TAB PO SCH (12:00)
[2024-02-18] MEDS ORDERED: PIPERACILLIN-TAZOB 3.375GM 100 ML IV SCH ×2 (12:00)
[2024-02-18] MEDS: ENOXAPARIN SOD 40 MG/0.4 ML SYRINGE SC SCH (12:02)
[2024-02-18] MEDS: SODIUM CHLORIDE 0.9% 1,000 ML IV SCH (12:02)
[2024-02-18] MEDS ORDERED: METOCLOPRAMIDE HCL 10 MG TAB PO PRN (14:45)
[2024-02-18] MEDS: HYDROmorphone HCL 2 MG/ML VL/or syr IV PRN ×2 (14:49→20:18)
[2024-02-18] MEDS: ONDANSETRON HCL 4 MG/2 ML VIAL IV PRN (14:52)
[2024-02-18] MEDS: diphenhdrAMINE HCL 50 MG/1 ML VL IV PRN (15:02)
[2024-02-18] MEDS: GABAPENTIN 300 MG CAP PO SCH (15:02)
[2024-02-18] MEDS: CALCIUM W/VIT D (600MG/400IU) TAB PO SCH (18:00)
[2024-02-18 18:03] VITALS: PULSE 80; RESP 16; O2SAT 95
[2024-02-18] MEDS ORDERED: OXY5T GT (18:37)
[2024-02-18 19:25] VITALS: BP 92/58; PULSE 83; RESP 18; TEMP 97.9; O2SAT 98
[2024-02-18 20:00] VITALS: PULSE 78; RESP 18; O2SAT 96
[2024-02-18] MEDS: METOCLOPRAMIDE HCL 10 MG TAB PO PRN (20:16)
[2024-02-18 21:00] VITALS: BP 122/73; PULSE 78; RESP 18; TEMP 97.7; O2SAT 97
[2024-02-18] MEDS: FAMOTIDINE 20 MG TAB PO SCH (21:42)
[2024-02-18] MEDS ORDERED: VANCOMYCIN 1GM/200ML 200 ML IV SCH (22:00)
[2024-02-18] MEDS ORDERED: VANCOMYCIN 750mg/150ml 150 ML IV SCH (22:00)
[2024-02-19 01:00] VITALS: BP 102/60; PULSE 88; RESP 18; TEMP 97.6; O2SAT 98
[2024-02-19] MEDS: VANCOMYCIN 1GM/200ML 200 ML IV ONE (03:09)
[2024-02-19] MEDS: VANCOMYCIN 750mg/150ml 150 ML IV SCH (03:58)
[2024-02-19 04:53] LABS: Alkaline Phosphatase 83 U/L (46-116); Anion Gap 3 (5-15); Aspartate Aminotransferase 12 U/L (13-40); Bilirubin, Total < 0.2 mg/dL (0.2-1.0); Carbon Dioxide 26 mmol/L (20-30); Chloride 104 mmol/L (98-107); Glucose 83 mg/dL (74-106); Potassium 3.6 mmol/L (3.5-5.1); Sodium 133 mmol/L (136-145); Total Protein 7.9 g/dL (5.7-8.2)
[2024-02-19 04:57] LABS: Alanine Aminotransferase < 9 U/L (7-40); Blood Urea Nitrogen < 5 mg/dL (9-23)
[2024-02-19 05:00] VITALS: BP 105/72; PULSE 90; RESP 18; TEMP 97.5; O2SAT 98
[2024-02-19 05:00] LABS: Basophils # (auto) 0 10 ^3/uL (0-0.2); Basophils % (auto) 0.7 % (0.0-2.0); Eosinophils # (auto) 0.4 10 ^3/uL (0-0.8); Eosinophils % (auto) 6.6 % (0.0-7.0); Hematocrit 24.1 % (36.0-46.0); Hemoglobin 8.1 g/dL (12.2-16.2); Lymphocytes % (auto) 36.4 % (10.0-50.0); Mean Corpuscular Hemoglobin 24.6 pg (28.0-32.0); Mean Corpuscular Hgb Conc. 33.8 g/dL (32.0-36.0); Mean Corpuscular Volume 72.7 fL (80.0-100.0); Monocytes # (auto) 0.4 10 ^3/uL (0-1.3); Monocytes % (auto) 7.8 % (0.0-12.0); Neutrophils # (auto) 2.6 10 ^3/uL (1.6-8.6); Neutrophils % (auto) 48.5 % (37.0-80.0); Nucleated Red Blood Cells % 0.1 %; Red Blood Cells 3.31 10^6/uL (4.0-5.20); Red Cell Distribution Width 18.5 % (11.8-14.3); White Blood Cell 5.5 10^3/uL (4.4-10.8)
[2024-02-19 09:00] VITALS: BP 143/87; PULSE 93; RESP 16; TEMP 97.5; O2SAT 94
[2024-02-19] MEDS: POLYETHYLENE GLYCOL 17 GM PWDR PO SCH (10:00)
[2024-02-19] MEDS: DOCUSATE SOD 100 MG CAP PO SCH (10:00)
[2024-02-19] MEDS: SERTRALINE HCL 50 MG TAB PO SCH (10:56)
[2024-02-19] MEDS: FOLIC ACID 1 MG TAB PO SCH (10:57)
[2024-02-19 13:00] VITALS: BP 127/78; PULSE 99; RESP 16; TEMP 97.6; O2SAT 100
[2024-02-19 16:46] VITALS: BP 114/70; PULSE 105; RESP 14; TEMP 97.2; O2SAT 98
[2024-02-19] MEDS: FLUCONAZOLE 100 MG TAB PO ONE (18:45)
[2024-02-19 20:00] VITALS: PULSE 101; RESP 18
[2024-02-20] MEDS: MAGNESIUM OXIDE 400 MG TAB PO SCH (10:44)
[2024-02-20] MEDS: FLUCONAZOLE 100 MG TAB PO SCH (10:44)
[2024-02-20] MEDS: POTASSIUM CHL 20 Meq TABLET PO SCH (10:45)
[2024-02-20 17:00] VITALS: BP 102/61; PULSE 89; RESP 17; TEMP 98.5; O2SAT 95
[2024-02-20] MEDS: diphenhdrAMINE HCL 50 MG/1 ML VL IV PRN (19:40)
[2024-02-20 22:00] VITALS: BP 102/56; PULSE 82; RESP 18; TEMP 97.7; O2SAT 93
[2024-02-21] VITALS (9 sets, daily range): BP systolic 106–169; BP diastolic 59–99; PULSE 71–95; RESP 14–18; TEMP 97.9–98.5; O2SAT 92–100
[2024-02-21 05:49] LABS: Basophils # (auto) 0 10 ^3/uL (0-0.2); Eosinophils # (auto) 0.2 10 ^3/uL (0-0.8); Lymphocytes # (auto) 1.6 10 ^3/uL (0.4-5.4); Monocytes # (auto) 0.4 10 ^3/uL (0-1.3); Neutrophils # (auto) 1.9 10 ^3/uL (1.6-8.6); Nucleated Red Blood Cells % 0.1 %; White Blood Cell 4.1 10^3/uL (4.4-10.8)
[2024-02-21 06:00] LABS: Basophils % (auto) 0.6 % (0.0-2.0); Eosinophils % (auto) 5.2 % (0.0-7.0); Hematocrit 20.1 % (36.0-46.0); Lymphocytes % (auto) 39.3 % (10.0-50.0); Mean Corpuscular Hemoglobin 24.8 pg (28.0-32.0); Mean Corpuscular Hgb Conc. 33.7 g/dL (32.0-36.0); Mean Corpuscular Volume 73.5 fL (80.0-100.0); Monocytes % (auto) 9.4 % (0.0-12.0); Neutrophils % (auto) 45.5 % (37.0-80.0); Red Blood Cells 2.74 10^6/uL (4.0-5.20); Red Cell Distribution Width 18.1 % (11.8-14.3)
[2024-02-21 06:37] LABS: Hemoglobin 6.8 g/dL (12.2-16.2)
[2024-02-21 07:59] LABS: Hematocrit 24.3 % (36.0-46.0)
[2024-02-21 08:01] LABS: Hemoglobin 8.1 g/dL (12.2-16.2)
[2024-02-21] MEDS: FLUCONAZOLE 100 MG TAB PO SCH (08:34)
[2024-02-21] MEDS ORDERED: FLUCONAZOLE 100 MG TAB PO SCH (10:00)
[2024-02-21 13:54] LABS: Hematocrit 25.4 % (36.0-46.0); Hemoglobin 8.6 g/dL (12.2-16.2)
[2024-02-21 18:22] LABS: Hemoglobin 8.4 g/dL (12.2-16.2)
[2024-02-22] VITALS (7 sets, daily range): BP systolic 110–138; BP diastolic 63–81; PULSE 61–95; RESP 16–21; TEMP 97.1–98.2; O2SAT 94–97
[2024-02-22 00:45] LABS: Hematocrit 25.8 % (36.0-46.0); Hemoglobin 8.8 g/dL (12.2-16.2)
[2024-02-22] MEDS: OXYCODONE W/ ACETAMINOPHEN 5/325MG TABLET PO PRN (14:16)
[2024-02-22] MEDS: VANCOMYCIN 750mg/150ml 150 ML IV SCH (20:47)
[2024-02-23] VITALS (8 sets, daily range): BP systolic 106–141; BP diastolic 75–86; PULSE 72–97; RESP 16–19; TEMP 97.7–98.5; O2SAT 94–98
[2024-02-24] VITALS (8 sets, daily range): BP systolic 103–121; BP diastolic 67–83; PULSE 83–93; RESP 16–17; TEMP 36.8; O2SAT 95–97
[2024-02-24] MEDS: VANCOMYCIN 1GM/200ML 0 ML IV ONE (00:15)
[2024-02-24] MEDS: VANCOMYCIN 750mg/150ml 150 ML IV SCH (00:18)
[2024-02-24 06:55] LABS: Chloride 98 mmol/L (98-107); Potassium 3.6 mmol/L (3.5-5.1); Sodium 131 mmol/L (136-145)
[2024-02-24 06:56] LABS: Anion Gap 5 (5-15); Calcium 10.3 mg/dL (8.7-10.4); Carbon Dioxide 28 mmol/L (20-30)
[2024-02-24 07:01] LABS: Glucose 81 mg/dL (74-106)
[2024-02-24 07:02] LABS: Magnesium 1.1 mg/dL (1.6-2.6)
[2024-02-24 07:11] LABS: BUN/Creatinine Ratio 13.9 (10.0-20.0); Blood Urea Nitrogen < 5 mg/dL (9-23)
[2024-02-24 07:39] LABS: Basophils # (auto) 0 10 ^3/uL (0-0.2); Basophils % (auto) 0.8 % (0.0-2.0); Eosinophils # (auto) 0.2 10 ^3/uL (0-0.8); Eosinophils % (auto) 4.4 % (0.0-7.0); Hematocrit 26.3 % (36.0-46.0); Hemoglobin 8.9 g/dL (12.2-16.2); Lymphocytes # (auto) 1.9 10 ^3/uL (0.4-5.4); Lymphocytes % (auto) 35.7 % (10.0-50.0); Mean Corpuscular Volume 70.5 fL (80.0-100.0); Monocytes # (auto) 0.6 10 ^3/uL (0-1.3); Monocytes % (auto) 11.1 % (0.0-12.0); Neutrophils # (auto) 2.6 10 ^3/uL (1.6-8.6); Nucleated Red Blood Cells % 0.1 %; Red Blood Cells 3.72 10^6/uL (4.0-5.20); Red Cell Distribution Width 18.2 % (11.8-14.3); White Blood Cell 5.4 10^3/uL (4.4-10.8)
[2024-02-24] MEDS: HYDROmorphone HCL 2 MG/ML VL/or syr IV PRN (12:00)
[2024-02-24] MEDS: FLORASTOR (S. BOULARDII) 250 MG CAP PO ONE (15:31)
[2024-02-25] MEDS ORDERED: FLORASTOR (S. BOULARDII) 250 MG CAP PO SCH (10:00)
== END 2024-02-24 17:55 | disposition home health service (06) | DRG 466 ==
LOC: EDBD 21:51 → EDUNIT# 21:51 → ER 21:51 → OVERFLOW 02-18 09:42 → CENTRAL 02-18 09:42 → ER 02-18 09:42 → CENTRAL 02-18 17:35
PROVIDERS: ADMIT Nurse Practitioner Family; ATTEND Internal Medicine Geriatric Medicine
DX: T83.518A Infection and inflammatory reaction due to other urinary catheter, initial encounter (principal); A41.02 Sepsis due to Methicillin resistant Staphylococcus aureus; G82.50 Quadriplegia, unspecified; L89.153 Pressure ulcer of sacral region, stage 3; N12 Tubulo-interstitial nephritis, not specified as acute or chronic; D64.9 Anemia, unspecified; M46.28 Osteomyelitis of vertebra, sacral and sacrococcygeal region; L03.317 Cellulitis of buttock; F41.9 Anxiety disorder, unspecified; F32.A Depression, unspecified; K60.5 Anorectal fistula; E03.9 Hypothyroidism, unspecified; Z93.0 Tracheostomy status; Z74.01 Bed confinement status; Z88.1 Allergy status to other antibiotic agents; Z88.6 Allergy status to analgesic agent; Z88.5 Allergy status to narcotic agent; Z88.8 Allergy status to other drugs, medicaments and biological substances; Z79.899 Other long term (current) drug therapy; Z87.442 Personal history of urinary calculi; Z81.8 Family history of other mental and behavioral disorders; Z82.3 Family history of stroke; Z80.1 Family history of malignant neoplasm of trachea, bronchus and lung; Z82.49 Family history of ischemic heart disease and other diseases of the circulatory system; Z83.3 Family history of diabetes mellitus; Z86.14 Personal history of Methicillin resistant Staphylococcus aureus infection; Z93.59 Other cystostomy status
CPT/HCPCS: 36415; 74176; 80048; 80053; 80202; 81001; 81025; 82565; 83605; 83735; 85014; 85018; 85025; 87040; 87077; 87086; 87088; 87186; 87205; 96361; 96374; 96375; A4605; G0378; J2405

== ENCOUNTER 2024-03-06 19:20 | Inpatient (IN) | payer MEDICAID ==
[~2024-03-06] VITALS: Ht 165.1 cm; Wt 121.3 kg
[2024-03-06] MEDS: SODIUM CHLORIDE 0.9% 1,000 ML IV ONE (03:00)
[2024-03-06] MEDS: PIPERACILLIN-TAZO 4.5GM 100 ML IV ONE (03:15)
[~2024-03-06 19:20] MED LIST changes: +METO-281 PO; +OXY5T GT
[2024-03-07] VITALS (7 sets, daily range): BP systolic 102–136; BP diastolic 73–91; PULSE 77–87; RESP 16–20; TEMP 97.5–98.1; O2SAT 92–98
[2024-03-07 01:33] LABS: Eosinophils # (auto) 0.3 10 ^3/uL (0-0.8); Eosinophils % (auto) 4.2 % (0.0-7.0); Hemoglobin 9.8 g/dL (12.2-16.2)
[2024-03-07 01:35] LABS: Basophils # (auto) 0.1 10 ^3/uL (0-0.2); Basophils % (auto) 0.8 % (0.0-2.0); Hematocrit 29.2 % (36.0-46.0); Lymphocytes % (auto) 25.6 % (10.0-50.0); Mean Corpuscular Hemoglobin 23.8 pg (28.0-32.0); Mean Corpuscular Hgb Conc. 33.7 g/dL (32.0-36.0); Mean Corpuscular Volume 70.6 fL (80.0-100.0); Monocytes # (auto) 0.5 10 ^3/uL (0-1.3); Monocytes % (auto) 6.8 % (0.0-12.0); Neutrophils # (auto) 4.9 10 ^3/uL (1.6-8.6); Neutrophils % (auto) 62.6 % (37.0-80.0); Nucleated Red Blood Cells % 0.3 %; Red Blood Cells 4.13 10^6/uL (4.0-5.20); Red Cell Distribution Width 18.5 % (11.8-14.3); White Blood Cell 7.8 10^3/uL (4.4-10.8)
[2024-03-07 01:39] LABS: INR 1.14 (0.9-1.15); Partial Thromboplastin Time 23.2 SEC (24.5-34.5)
[2024-03-07 01:40] LABS: Alanine Aminotransferase < 9 U/L (7-40); Albumin 3.9 g/dL (3.2-4.8); Alkaline Phosphatase 111 U/L (46-116); Anion Gap 7 (5-15); Aspartate Aminotransferase 16 U/L (13-40); BUN/Creatinine Ratio 12.5 (10.0-20.0); Bilirubin, Total 0.2 mg/dL (0.2-1.0); Blood Urea Nitrogen < 5 mg/dL (9-23); Calcium 9.7 mg/dL (8.7-10.4); Carbon Dioxide 24 mmol/L (20-30); Chloride 102 mmol/L (98-107); Glucose 80 mg/dL (74-106); Potassium 3.4 mmol/L (3.5-5.1); Sodium 133 mmol/L (136-145)
[2024-03-07] MEDS: POTASSIUM CHL 20 Meq TABLET PO ONE ×2 (02:00→08:56)
[2024-03-07] MEDS: ONDANSETRON HCL 4 MG/2 ML VIAL IV ONE (03:45)
[2024-03-07] MEDS: HYDROmorphone HCL 2 MG/ML VL/or syr IV ONE ×2 (03:50→04:45)
[2024-03-07 04:51] LABS: Urine Bacteria FEW /hpf (None Seen); Urine Blood Negative /uL (Negative); Urine Budding Yeast FEW /hpf (None Seen); Urine Clarity Turbid (Clear); Urine Mucus FEW (None Seen); Urine Protein, UAD TRACE (Negative); Urine Specific Gravity 1.007 (1.001-1.035); Urine Urobilinogen Normal (Negative); Urine WBC 13 /hpf (0 - 5); Urine pH 7.5 (5.0-9.0)
[2024-03-07 04:52] LABS: Urine Color STRAW (Yellow)
[2024-03-07] MEDS ORDERED: ACETAMINOPHEN 325 MG TAB PO PRN (05:15)
[2024-03-07] MEDS ORDERED: TEMAZEPAM 15 MG CAP PO PRN (05:15)
[2024-03-07] MEDS ORDERED: ALBUTEROL SULF 2.5 MG/0.5ML(0.5%) NEB SOLN NEB PRN (05:15)
[2024-03-07] MEDS: PIPERACILLIN-TAZOB 3.375GM 100 ML IV SCH (06:00)
[2024-03-07] MEDS: MORPHINE SULFATE INJ 2 MG/ml SYRG IV PRN ×2 (06:32→10:45)
[2024-03-07] MEDS: ENOXAPARIN SOD 40 MG/0.4 ML SYRINGE SC SCH (10:44)
[2024-03-07] MEDS: PANTOPRAZOLE 40 MG TAB PO SCH (10:44)
[2024-03-07] MEDS: POTASSIUM EFFERVESENT TAB 25 MEQ GT ONE (10:44)
[2024-03-07] MEDS: POTASSIUM EFFERVESENT TAB 25 MEQ PO ONE (10:52)
[2024-03-07] MEDS ORDERED: VANCOMYCIN PER PHARMACY 0 MG IV SCH (11:15)
[2024-03-07] MEDS: HYDROmorphone HCL 2 MG/ML VL/or syr IV PRN (17:44)
[2024-03-07] MEDS: DOCUSATE SOD 100 MG CAP PO ONE (20:34)
[2024-03-07] MEDS: VANCOMYCIN 1GM/200ML 200 ML IV ONE (20:34)
[2024-03-07] MEDS: diphenhdrAMINE HCL 50 MG/1 ML VL IV ONE (20:34)
[2024-03-08] VITALS (11 sets, daily range): BP systolic 114–144; BP diastolic 76–92; PULSE 72–93; RESP 16–20; TEMP 97.4–98; O2SAT 96–98
[2024-03-08] MEDS: PIPERACILLIN-TAZOB 3.375GM 100 ML IV SCH (00:06)
[2024-03-08 06:22] LABS: Anion Gap 7 (5-15); Carbon Dioxide 22 mmol/L (20-30); Chloride 102 mmol/L (98-107); Potassium 3.1 mmol/L (3.5-5.1); Sodium 131 mmol/L (136-145)
[2024-03-08 06:23] LABS: Calcium 9.1 mg/dL (8.7-10.4)
[2024-03-08 06:27] LABS: Glucose 101 mg/dL (74-106)
[2024-03-08 06:37] LABS: BUN/Creatinine Ratio 12.5 (10.0-20.0); Blood Urea Nitrogen < 5 mg/dL (9-23)
[2024-03-08 06:38] LABS: Basophils # (auto) 0 10 ^3/uL (0-0.2); Basophils % (auto) 0.6 % (0.0-2.0); Eosinophils # (auto) 0.2 10 ^3/uL (0-0.8); Hematocrit 25.8 % (36.0-46.0); Hemoglobin 8.7 g/dL (12.2-16.2); Mean Corpuscular Hemoglobin 23.8 pg (28.0-32.0); Monocytes # (auto) 0.4 10 ^3/uL (0-1.3); Nucleated Red Blood Cells % 0.2 %; White Blood Cell 4.2 10^3/uL (4.4-10.8)
[2024-03-08 06:42] LABS: Eosinophils % (auto) 4.7 % (0.0-7.0); Lymphocytes # (auto) 1.5 10 ^3/uL (0.4-5.4); Lymphocytes % (auto) 36.5 % (10.0-50.0); Mean Corpuscular Hgb Conc. 33.9 g/dL (32.0-36.0); Mean Corpuscular Volume 70.3 fL (80.0-100.0); Monocytes % (auto) 9.2 % (0.0-12.0); Neutrophils # (auto) 2.1 10 ^3/uL (1.6-8.6); Red Blood Cells 3.67 10^6/uL (4.0-5.20); Red Cell Distribution Width 18.7 % (11.8-14.3)
[2024-03-08 07:25] LABS: Albumin 3.3 g/dL (3.2-4.8); Alkaline Phosphatase 94 U/L (46-116); Aspartate Aminotransferase 15 U/L (13-40); Bilirubin, Direct < 0.1 mg/dL (<0.3); Bilirubin, Total 0.2 mg/dL (0.2-1.0); Total Protein 8.9 g/dL (5.7-8.2)
[2024-03-08 07:35] LABS: Alanine Aminotransferase < 9 U/L (7-40)
[2024-03-08] MEDS: POTASSIUM CHL 20MEQ/100ML 100 ML IV SCH (08:38)
[2024-03-08] MEDS: diphenhdrAMINE HCL 50 MG/1 ML VL IV PRN (13:59)
[2024-03-08] MEDS: VANCOMYCIN 750mg/150ml 150 ML IV SCH (14:14)
[2024-03-08] MEDS: ONDANSETRON HCL 4 MG/2 ML VIAL IV PRN (20:37)
[2024-03-09] VITALS (7 sets, daily range): BP systolic 90–117; BP diastolic 50–79; PULSE 81–102; RESP 17–20; TEMP 36.9; O2SAT 94–99
[2024-03-09 06:25] LABS: Basophils # (auto) 0 10 ^3/uL (0-0.2); Basophils % (auto) 0.7 % (0.0-2.0); Eosinophils # (auto) 0.2 10 ^3/uL (0-0.8); Eosinophils % (auto) 3.6 % (0.0-7.0); Hematocrit 30.2 % (36.0-46.0); Hemoglobin 9.8 g/dL (12.2-16.2); Lymphocytes # (auto) 1.8 10 ^3/uL (0.4-5.4); Lymphocytes % (auto) 31.2 % (10.0-50.0); Mean Corpuscular Hemoglobin 23.6 pg (28.0-32.0); Mean Corpuscular Hgb Conc. 32.6 g/dL (32.0-36.0); Mean Corpuscular Volume 72.6 fL (80.0-100.0); Monocytes # (auto) 0.6 10 ^3/uL (0-1.3); Monocytes % (auto) 10.6 % (0.0-12.0); Neutrophils # (auto) 3.1 10 ^3/uL (1.6-8.6); Neutrophils % (auto) 53.9 % (37.0-80.0); Nucleated Red Blood Cells % 0.3 %; Red Blood Cells 4.16 10^6/uL (4.0-5.20); Red Cell Distribution Width 18.4 % (11.8-14.3); White Blood Cell 5.7 10^3/uL (4.4-10.8)
[2024-03-09 06:41] LABS: Albumin 3.6 g/dL (3.2-4.8); Alkaline Phosphatase 94 U/L (46-116); Anion Gap 9 (5-15); Aspartate Aminotransferase 14 U/L (13-40); Bilirubin, Total 0.2 mg/dL (0.2-1.0); Calcium 9.2 mg/dL (8.5-10.1); Carbon Dioxide 22 mmol/L (20-30); Chloride 103 mmol/L (98-107); Glucose 88 mg/dL (74-106); Potassium 3.3 mmol/L (3.5-5.1); Sodium 134 mmol/L (136-145); Total Protein 9.4 g/dL (5.7-8.2)
[2024-03-09 07:05] LABS: Alanine Aminotransferase < 9 U/L (7-40); BUN/Creatinine Ratio 12.2 (10.0-20.0); Blood Urea Nitrogen < 5 mg/dL (9-23)
[2024-03-09] MEDS ORDERED: COLCHICINE 0.6 MG CAP PO ONE (13:30)
[2024-03-10 10:56] LABS: Hepatitis B Surface Antigen Negative (Negative)
[2024-03-10 11:18] LABS: Hepatitis C Antibody Negative (Negative)
== END 2024-03-09 18:00 | disposition home health service (06) | DRG 383 ==
LOC: EDBD 19:20 → EDUNIT# 19:20 → ER 19:20 → OVERFLOW 03-07 05:16 → CENTRAL 03-07 15:07
PROVIDERS: ADMIT Internal Medicine; ATTEND Internal Medicine
DX: L03.115 Cellulitis of right lower limb (principal); G82.50 Quadriplegia, unspecified; L89.214 Pressure ulcer of right hip, stage 4; M86.651 Other chronic osteomyelitis, right thigh; Z93.0 Tracheostomy status; E87.6 Hypokalemia; N39.0 Urinary tract infection, site not specified; F41.9 Anxiety disorder, unspecified; F32.A Depression, unspecified; E03.9 Hypothyroidism, unspecified; Z88.5 Allergy status to narcotic agent; Z87.442 Personal history of urinary calculi; Z88.1 Allergy status to other antibiotic agents; Z86.14 Personal history of Methicillin resistant Staphylococcus aureus infection; Z74.01 Bed confinement status; Z93.59 Other cystostomy status
CPT/HCPCS: 36415; 71045; 74176; 80048; 80053; 80076; 80202; 81001; 83605; 85025; 85610; 85730; 86803; 87040; 87077; 87081; 87086; 87088; 87186; 87205; 87340; G0378; J2405; J2543; J3480

== ENCOUNTER 2024-03-15 04:51 | Inpatient (IN) | payer MEDICAID ==
[2024-03-15] VITALS (7 sets, daily range): BP systolic 112; BP diastolic 81; PULSE 72–100; RESP 14–22; TEMP 97.5; O2SAT 97–100
[~2024-03-15] VITALS: Ht 162.6 cm; Wt 45.5 kg
[2024-03-15 07:15] LABS: Chloride 102 mmol/L (98-107); Potassium 3.3 mmol/L (3.5-5.1); Sodium 133 mmol/L (136-145)
[2024-03-15 07:16] LABS: Anion Gap 8 (5-15); Carbon Dioxide 23 mmol/L (20-30)
[2024-03-15 07:17] LABS: Calcium 10.3 mg/dL (8.5-10.1)
[2024-03-15 07:21] LABS: Glucose 107 mg/dL (74-106)
[2024-03-15 07:26] LABS: BUN/Creatinine Ratio 12.2 (10.0-20.0); Blood Urea Nitrogen < 5 mg/dL (9-23)
[2024-03-15 07:33] LABS: Urine Bacteria FEW /hpf (None Seen); Urine Blood Negative /uL (Negative); Urine Clarity Clear (Clear); Urine Color Colorless (Yellow); Urine Protein, UAD Negative (Negative); Urine Specific Gravity 1.006 (1.001-1.035); Urine Urobilinogen Normal (Negative); Urine WBC 5 /hpf (0 - 5)
[2024-03-15 07:50] LABS: Basophils # (auto) 0.1 10 ^3/uL (0-0.2); Basophils % (auto) 0.6 % (0.0-2.0); Eosinophils # (auto) 0.2 10 ^3/uL (0-0.8); Hematocrit 30.7 % (36.0-46.0); Hemoglobin 9.9 g/dL (12.2-16.2); Lymphocytes # (auto) 2.3 10 ^3/uL (0.4-5.4); Lymphocytes % (auto) 26.6 % (10.0-50.0); Mean Corpuscular Hemoglobin 23.1 pg (28.0-32.0); Mean Corpuscular Hgb Conc. 32.1 g/dL (32.0-36.0); Mean Corpuscular Volume 71.9 fL (80.0-100.0); Monocytes # (auto) 0.6 10 ^3/uL (0-1.3); Monocytes % (auto) 6.4 % (0.0-12.0); Neutrophils # (auto) 5.5 10 ^3/uL (1.6-8.6); Neutrophils % (auto) 64.4 % (37.0-80.0); Nucleated Red Blood Cells % 0.3 %; Red Blood Cells 4.26 10^6/uL (4.0-5.20); Red Cell Distribution Width 19.3 % (11.8-14.3); White Blood Cell 8.6 10^3/uL (4.4-10.8)
[2024-03-15] MEDS: POTASSIUM EFFERVESENT TAB 25 MEQ PO ONE ×2 (08:50→11:01)
[2024-03-15] MEDS: SODIUM CHLORIDE 0.9% 1,000 ML IV ONE (08:52)
[2024-03-15] MEDS: cefTRIAXone 1GM/50ML D5W 50 ML IV ONE (09:04)
[2024-03-15] MEDS ORDERED: VANCOMYCIN PER PHARMACY 0 MG IV SCH (09:45)
[2024-03-15] MEDS ORDERED: PATIENTS OWN MEDICATION (Magnesium Oxide 1 TAB) PO SCH (10:00)
[2024-03-15] MEDS ORDERED: PATIENTS OWN MEDICATION (Venlafaxine Hydrochloride (Effexor Xr) 1 CAP) PO SCH (10:00)
[2024-03-15] MEDS ORDERED: traZODone HCL 50 MG TAB PO PRN (10:00)
[2024-03-15] MEDS ORDERED: HYDROCORTONE 1% TOPICAL CREAM 30 GM TUBE TOP PRN (10:00)
[2024-03-15] MEDS ORDERED: BISACODYL 10 MG RECT SUPP PR PRN (10:00)
[2024-03-15] MEDS: FERROUS SULFATE 50 MG PO SCH (10:00)
[2024-03-15] MEDS ORDERED: ACETAMINOPHEN 325 MG TAB PO PRN (10:15)
[2024-03-15] MEDS ORDERED: MORPHINE SULFATE INJ 2 MG/ml SYRG IV PRN (10:15)
[2024-03-15] MEDS ORDERED: NITROGLYCERIN 0.4 MG SL TAB SL PRN (10:15)
[2024-03-15] MEDS: SERTRALINE HCL 50 MG TAB PO SCH (10:59)
[2024-03-15] MEDS: FOLIC ACID 1 MG TAB PO SCH (11:00)
[2024-03-15] MEDS: FLORASTOR (S. BOULARDII) 250 MG CAP PO SCH (11:00)
[2024-03-15] MEDS: FAMOTIDINE 20 MG TAB PO SCH (11:00)
[2024-03-15] MEDS: DOCUSATE SOD 100 MG CAP PO SCH (11:00)
[2024-03-15] MEDS: PANTOPRAZOLE 40 MG TAB PO SCH (11:01)
[2024-03-15] MEDS ORDERED: ALBUTEROL SULF 2.5 MG/0.5ML(0.5%) NEB SOLN NEB PRN (11:15)
[2024-03-15] MEDS ORDERED: SIMETHICONE 80 MG PO SCH (12:00)
[2024-03-15] MEDS: SIMETHICONE 80 MG CHEWABLE TABLET PO SCH (12:00)
[2024-03-15] MEDS: SODIUM CHLORIDE 0.9% 1,000 ML IV SCH (12:30)
[2024-03-15] MEDS: METOCLOPRAMIDE HCL 10 MG TAB PO SCH (12:43)
[2024-03-15] MEDS: IPRATROPIUM BROM 0.5 MG/2.5ML INH SOL ONE (13:15)
[2024-03-15] MEDS: ALBUTEROL SULF 2.5 MG/0.5ML(0.5%) NEB SOLN ONE (13:15)
[2024-03-15] MEDS: ACETYLCYSTEINE 10 %(100MG/ML) SOL 4ML ONE (13:29)
[2024-03-15] MEDS: ACETYLCYSTEINE 10 %(100MG/ML) SOL 4ML IN SCH (13:35)
[2024-03-15] MEDS: IPRATROPIUM BROM 0.5 MG/2.5ML INH SOL NEB SCH (13:36)
[2024-03-15] MEDS: ALBUTEROL SULF 2.5 MG/0.5ML(0.5%) NEB SOLN NEB SCH (13:36)
[2024-03-15] MEDS ORDERED: VANCOMYCIN 750mg/150ml 150 ML IV SCH ×2 (14:00)
[2024-03-15] MEDS ORDERED: ACETYLCYSTEINE 10 %(100MG/ML) SOL 4ML IN SCH (14:00)
[2024-03-15] MEDS: traMADol HCL 50 MG TAB PO SCH (14:05)
[2024-03-15] MEDS: BACLOFEN 10 MG TAB PO SCH (14:05)
[2024-03-15] MEDS: GABAPENTIN 300 MG CAP PO SCH (14:05)
[2024-03-15] MEDS: VANCOMYCIN 750mg/150ml 150 ML IV SCH (14:08)
[2024-03-15] MEDS: diphenhdrAMINE HCL 50 MG/1 ML VL IV PRN (14:25)
[2024-03-15] MEDS: HYDROcodone-ACET 10/325MG TAB PO PRN (18:11)
[2024-03-15] MEDS: CALCIUM W/VIT D (600MG/400IU) TAB PO SCH (19:22)
[2024-03-15] MEDS: ASCORBIC ACID 500 MG TAB PO SCH (22:24)
[2024-03-16] MEDS ORDERED: cefTRIAXone 1GM/50ML D5W 50 ML IV SCH (09:00)
[2024-03-16] MEDS ORDERED: ZINC SULFATE 220mg CAP or TAB PO SCH (10:00)
[2024-03-16] MEDS ORDERED: MAGNESIUM OXIDE 400 MG TAB PO SCH (10:00)
[2024-03-16] MEDS ORDERED: VENLAFAXINE HCL 37.5mg XR cap PO SCH (10:00)
[2024-03-16] MEDS ORDERED: ENOXAPARIN SOD 40 MG/0.4 ML SYRINGE SC SCH (10:00)
[2024-03-16] MEDS ORDERED: MULTIPLE VITAMIN TAB PO SCH (10:00)
== END 2024-03-15 23:20 | disposition left against medical advice (07) | DRG 466 ==
LOC: EDBD 04:51 → ER 04:51 → OVERFLOW 10:16
PROVIDERS: ADMIT Nurse Practitioner Family; ATTEND Nurse Practitioner Family
DX: T83.518A Infection and inflammatory reaction due to other urinary catheter, initial encounter (principal); G82.50 Quadriplegia, unspecified; L89.214 Pressure ulcer of right hip, stage 4; L89.224 Pressure ulcer of left hip, stage 4; M54.2 Cervicalgia; E87.1 Hypo-osmolality and hyponatremia; Z93.0 Tracheostomy status; N30.00 Acute cystitis without hematuria; F32.A Depression, unspecified; F41.9 Anxiety disorder, unspecified; N20.0 Calculus of kidney; E87.6 Hypokalemia; Z79.891 Long term (current) use of opiate analgesic; Z79.899 Other long term (current) drug therapy; Z88.1 Allergy status to other antibiotic agents; Z88.5 Allergy status to narcotic agent; Z87.442 Personal history of urinary calculi; Z87.440 Personal history of urinary (tract) infections; Z74.01 Bed confinement status
CPT/HCPCS: 36415; 72125; 80048; 81001; 81025; 85025; 87077; 87086; 87088; 87186; 87205; 94640; G0378